=== PATIENT | male | born 1955 | race Caucasian/White ===

== ENCOUNTER 2019-07-17 18:37 | Inpatient (IN) | payer OTHER ==
[~2019-07-17] VITALS: Ht 193 cm; Wt 136.9 kg
[2019-07-17 19:13] LABS: BASOPHILS ABSOLUTE AUTO 0.09 K/mm3 (0.00-0.23); BASOPHILS PERCENT AUTO 1 % (0-2); EOSINOPHILS ABSOLUTE AUTO 0.03 K/mm3 (0.00-0.68); EOSINOPHILS PERCENT AUTO 0 % (0-6); Hematocrit 46.1 % (37.0-53.0); Hemoglobin 14.4 g/dL (13.5-17.5); IMMATURE GRAN ABSOLUTE AUTO 0.07 K/mm3 (0.00-0.10); IMMATURE GRAN PERCENT AUTO 0 % (0-1); LYMPHOCYTES ABSOLUTE AUTO 3.12 K/mm3 (0.84-5.20); LYMPHOCYTES PERCENT AUTO 19 % (21-46); MONOCYTES PERCENT AUTO 7 % (4-13); Mean Corpuscular HGB Conc 31.2 g/dL (31.5-36.5); Mean Corpuscular Volume 90 fL (80-100); Mean Platelet Volume 8.8 fL (9.1-12.4); NEUTROPHILS PERCENT AUTO 74 % (41-73); Platelet Count 366 K/mm3 (150-400); RDW Coefficient Variation 13.2 % (11.7-14.2); RDW Standard Deviation 43.4 fL (35.1-46.3); Red Blood Cell Count 5.15 M/mm3 (4.30-5.90); White Blood Cell Count 16.91 K/mm3 (4.00-11.30)
[2019-07-17 19:40] LABS: Alanine Aminotransfer (ALT/SGP 25 U/L (12-78); Albumin, Blood 2.9 g/dL (3.4-5.0); Albumin/Globulin Ratio 0.6 (0.8-1.8); Alk Phos 118 U/L (50-136); Anion Gap 8 mmol/L (6-16); Aspartate Aminotrans (AST/SGOT 43 U/L (12-37); Blood Urea Nitrogen 14 mg/dL (8-24); Bun/Creatinine Ratio 16.1 (12.0-20.0); CO2, Blood 23 mmol/L (21-32); Calcium, Blood 8.4 mg/dL (8.5-10.1); Chloride, Blood 101 mmol/L (98-108); Creatinine, Blood 0.87 mg/dL (0.60-1.20); Globulin, Blood 5.1 g/dL (2.2-4.0); Glomerular Filtration Rate >60 (60-); Glucose, Blood 126 mg/dL (70-99); Potassium, Blood 4.3 mmol/L (3.5-5.5); Sodium, Blood 132 mmol/L (136-145)
[2019-07-17 20:16] LABS: Source, Urine Clean Catch
[2019-07-17 20:19] LABS: Bilirubin, Urine Neg (Neg); Blood, Urine 4+ (Neg); Glucose Qualitative, Urine Neg (Neg); Ketones, Urine 2+ (Neg); Leukocyte Esterase, Urine Neg (Neg); Nitrite, Urine Neg (Neg); Protein, Urine 4+ (Neg); Urobilinogen, Urine NORM (Normal); pH, Urine 6.5 (5.0-8.0)
[2019-07-17 20:25] LABS: Appearance, Urine Bloody (Clear); Color, Urine Red (P-Yellow)
[2019-07-17 20:27] LABS: Red Blood Cells, Urine TNTC /hpf (0-2)
[2019-07-17 20:28] LABS: Bacteria Few /hpf; Squamous Epithelial Cells Not Seen /hpf (Few)
[2019-07-17] MEDS ORDERED: ELIQUIS2.5 MG PO (20:36)
[2019-07-17] MEDS ORDERED: METO50 PO (20:37)
[2019-07-17] MEDS ORDERED: ATOR10 PO (20:37)
[2019-07-17] MEDS ORDERED: GABA300 PO (20:37)
[2019-07-17 23:56] LABS: U Amphetamine Screen Not Detected; U Barbituate Screen Not Detected; U Benzodiazapine Screen Not Detected; U Buprenorphine Screen Not Detected; U Cannabinoids Screen DETECTED; U Cocaine Screen Not Detected; U Methadone Screen Not Detected; U Methamphetamine Screen Not Detected; U Opiates Screen Not Detected; U Oxycodone Screen Not Detected; U Phencyclidine Screen Not Detected; U Propoxyphene Screen Not Detected
--- NOTE | 2019-07-18 03:20 | NUR ---
PT TO ICU 14 FROM ED. PT ALERT AND ORIENTED, PLEASANT AND COOPERATIVE, MOVED TO ICU BED WITH SLIDER SHEET. PT'S RIGHT LEG RED/SWOLLEN/HOT FROM RIGHT HIM TO KNEE ANTERIOR/POSTERIOR. PT STATES THAT HIS HIP BEGAN HURTING "2 WEEKS AGO" AND HE SUSPECTED THAT HE WAS GETTING ARTHRITIS. PT REPORTS THAT THE PAIN/REDNESS AND SWELLING BEGAN TO GET PROGRESSIVELY WORSE AND MOVE DOWN HIS LEG. PT ALSO STATES THAT AROUND THIS TIME HE BEGAN HAVING RLQ PAIN. 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 PT COMES TO ICU IN AFIB WITH HR IN LOW 100'S. PT CHRONIC AFIB ANTICOAGULATED ON ELIQUIS. PT CURRENTLY AFEBRILE, VSS, DENIES PAIN OR NEEDS AT THIS TIME. SEE FULL ADMISSION HISTORY AND ASSESSMENT.
--- NOTE | 2019-07-18 05:48 | NUR ---
PT SHAKING UNCONTROLLABLY APPEARING DIAPHORETIC. PT REPORTS 8/10 PAIN IN ABDOMEN AND RIGHT LEG. TEMP 100.8. PT TREATED WITH PAIN MEDICATION WITH IMMEDIATE REPORTED DECREASE IN PAIN (0/10) AND TYLENOL FOR FEVER.
--- NOTE | 2019-07-18 06:39 | NUR ---
SHIFT SUMMARY NO ACUTE CHANGES SINCE ADMISSION. CURRENT TEMP 99.2. PT RESTING WELL. PLEASE SEE PREVIOUS NOTES FROM THIS SHIFT. WILL REPORT TO DAYSHIFT NURSE.
[2019-07-18 06:45] LABS: BASOPHILS ABSOLUTE AUTO 0.05 K/mm3 (0.00-0.23); BASOPHILS PERCENT AUTO 0 % (0-2); EOSINOPHILS ABSOLUTE AUTO 0.08 K/mm3 (0.00-0.68); EOSINOPHILS PERCENT AUTO 1 % (0-6); Hematocrit 39.3 % (37.0-53.0); Hemoglobin 12.4 g/dL (13.5-17.5); IMMATURE GRAN ABSOLUTE AUTO 0.05 K/mm3 (0.00-0.10); IMMATURE GRAN PERCENT AUTO 0 % (0-1); LYMPHOCYTES ABSOLUTE AUTO 2.11 K/mm3 (0.84-5.20); LYMPHOCYTES PERCENT AUTO 18 % (21-46); MONOCYTES ABSOLUTE AUTO 1.11 K/mm3 (0.16-1.47); MONOCYTES PERCENT AUTO 9 % (4-13); Mean Corpuscular HGB 27.7 pg (26.0-34.0); Mean Corpuscular HGB Conc 31.6 g/dL (31.5-36.5); Mean Corpuscular Volume 88 fL (80-100); Mean Platelet Volume 9.2 fL (9.1-12.4); NEUTROPHILS PERCENT AUTO 72 % (41-73); Platelet Count 301 K/mm3 (150-400); RDW Coefficient Variation 13.3 % (11.7-14.2); RDW Standard Deviation 42.9 fL (35.1-46.3); Red Blood Cell Count 4.48 M/mm3 (4.30-5.90)
[2019-07-18 07:00] LABS: International Normalized Ratio 1.11; Prothrombin Time Results 11.7 Sec (9.7-11.5)
[2019-07-18 07:12] LABS: Alanine Aminotransfer (ALT/SGP 19 U/L (12-78); Albumin, Blood 2.4 g/dL (3.4-5.0); Albumin/Globulin Ratio 0.6 (0.8-1.8); Alk Phos 95 U/L (50-136); Anion Gap 8 mmol/L (6-16); Aspartate Aminotrans (AST/SGOT 30 U/L (12-37); Bilirubin, Total 0.6 mg/dL (0.1-1.0); Blood Urea Nitrogen 14 mg/dL (8-24); Bun/Creatinine Ratio 18.2 (12.0-20.0); CO2, Blood 25 mmol/L (21-32); Calcium, Blood 7.7 mg/dL (8.5-10.1); Chloride, Blood 104 mmol/L (98-108); Creatinine, Blood 0.77 mg/dL (0.60-1.20); Globulin, Blood 4.3 g/dL (2.2-4.0); Glomerular Filtration Rate >60 (60-); Glucose, Blood 131 mg/dL (70-99); Sodium, Blood 137 mmol/L (136-145); Total Protein, Blood 6.7 g/dL (6.4-8.2)
--- NOTE | 2019-07-18 07:18 | NUR ---
ASSUMED CARE REPORT FROM JASON CONNELLY. PATIENT SLEEPING. IN CONTACT ISOLATION FOR MRSA. PCU STATUS. NPO FOR POSSIBLE SURGERY TODAY
--- NOTE | 2019-07-18 08:24 | NUR ---
[facility] REQUEST[facility]. CALL TO [facility] TO ADVISE PATIENT WILL NOT BE ABLE TO COME TO THIS SCHEDULED APPT THIS AM.
[2019-07-18] MEDS ORDERED: ATOR40TA PO (10:05)
--- NOTE | 2019-07-18 12:51 | NUR ---
DR. VALENTINO WAS IN. WAS UPDATED ON CT REPORT. WANTED DR. CRUZ TO SEE PT SOON BASED ON RESULTS. DR. CRUZ CAME IN, SAID PATIENT NEEDED ONCOLOGIST CONSULT PRIOR TO POSSIBLE I&D. DR. RAY'S OFFICE NOTIFED OF NEED FOR STAT CONSULT. DR. VALENTINO WILL COME BACK AT [address] FINDINGS WITH PATIENT. BOUCHRA, PALLIATIVE CARE RN WILL COME AT THAT TIME, ALSO.
--- NOTE | 2019-07-18 13:09 | NUR ---
CONFIRMED LIPITOR RX BY LOOK[facility]LE [facility]
--- NOTE | 2019-07-18 14:01 | NUR ---
PATIENT'S HAS HAD A RECENT STROKE. NOTIFIED DAUGHTER WHO IS HOME CARING FOR HER TO COME IN FOR FAMILY MEETING. SHE WILL ALSO BRING OTHER FAMILY MEMBERS
--- NOTE | 2019-07-18 14:27 | NUR ---
ADVISED PATIENT THAT CT RESULTS SHOW POSSIBLE CA. EXPLAINED SURGEON IS WAITING TO PERFORM SURGERY UNTIL AFTER ONCOLOGY GIVES OPINION. PATIENT REMAINS NPO AT LUNCH. FAMILY HAS BEEN NOTIFIED AND WILL COME IN TO BE PRESENT WHEN CT SCAN IS DISCUSSED BY MD'S
--- NOTE | 2019-07-18 16:12 | NUR ---
MD VISIT DR. RAY IN TO SEE PATIENT
--- NOTE | 2019-07-18 17:35 | NUR ---
MD VISIT DR. CRUZ IN. PATIENT MAY EAT AND HAVE HEPARIN TONIGHT. NPO FOR BREAKFAST AND HOLD AM HEPARIN.
--- NOTE | 2019-07-18 18:12 | NUR ---
REPORT GIVEN TO OH Meyer RN. PATIENT WILL GO TO 310 IN W/C WITH INSTRUMENT INSPECTOR
--- NOTE | 2019-07-18 19:32 | NUR ---
1823 PT TRANSFERRED FROM ICU VIA W/C. FAMILY AT BEDSIDE.
--- NOTE | 2019-07-18 19:46 | NUR ---
ASSUMED CARE OF PATIENT. PATIENT LAYING IN BED RR EVEN, UNLABORED, PT IS PAINFUL RLE BUT HAS NO IV ACCESS, PROCEDURE NURSE JUST ARRIVING TO PLACE IV. CALLED FOR TELE BOX, CALL CROOKS WITHIN REACH.
[2019-07-18 21:32] LABS: Vancomycin, Trough 17.7 ug/mL (5.0-10.0)
[2019-07-19 04:57] LABS: BASOPHILS ABSOLUTE AUTO 0.07 K/mm3 (0.00-0.23); BASOPHILS PERCENT AUTO 1 % (0-2); EOSINOPHILS ABSOLUTE AUTO 0.14 K/mm3 (0.00-0.68); EOSINOPHILS PERCENT AUTO 1 % (0-6); Hematocrit 37.1 % (37.0-53.0); Hemoglobin 11.5 g/dL (13.5-17.5); IMMATURE GRAN ABSOLUTE AUTO 0.05 K/mm3 (0.00-0.10); IMMATURE GRAN PERCENT AUTO 0 % (0-1); LYMPHOCYTES PERCENT AUTO 19 % (21-46); MONOCYTES ABSOLUTE AUTO 1.27 K/mm3 (0.16-1.47); MONOCYTES PERCENT AUTO 10 % (4-13); Mean Corpuscular HGB 27.6 pg (26.0-34.0); Mean Corpuscular Volume 89 fL (80-100); Mean Platelet Volume 8.9 fL (9.1-12.4); NEUTROPHILS ABSOLUTE AUTO 9.17 K/mm3 (1.96-9.15); NEUTROPHILS PERCENT AUTO 70 % (41-73); Platelet Count 275 K/mm3 (150-400); RDW Coefficient Variation 13.2 % (11.7-14.2); RDW Standard Deviation 43.3 fL (35.1-46.3); Red Blood Cell Count 4.16 M/mm3 (4.30-5.90)
[2019-07-19 05:21] LABS: Anion Gap 8 mmol/L (6-16); Blood Urea Nitrogen 9 mg/dL (8-24); Bun/Creatinine Ratio 12.3 (12.0-20.0); CO2, Blood 26 mmol/L (21-32); Calcium, Blood 7.8 mg/dL (8.5-10.1); Chloride, Blood 100 mmol/L (98-108); Creatinine, Blood 0.73 mg/dL (0.60-1.20); Glomerular Filtration Rate >60 (60-); Glucose, Blood 117 mg/dL (70-99); Sodium, Blood 134 mmol/L (136-145)
--- NOTE | 2019-07-19 10:49 | NUR ---
PT TRANSPORTED TO SURGERY VIA STRETCHER ACCOMPANIED BY RN.
--- NOTE | 2019-07-19 12:12 | NUR ---
07/19/19 1212 Lucy Johnson, DR SABILLON AND DR CRUZ AWARE
--- NOTE | 2019-07-19 13:42 | NUR ---
RECEIVED REPORT FROM BASSEM GOMEZ PT AWAKE AND ABLE TO TRANSFER BETWEEN STRETCHERS. DENIES ANY PAIN AT THIS TIME; POST OP VITALS IN PROGRESS. C/O NAUSEA. MEDICATION GIVEN. RIGHT GROIN WITH CLEAN DRY DRESSING IN PLACE.
--- NOTE | 2019-07-19 17:01 | NUR ---
FAMILY ATTENTIVE AND AT BEDSIDE; PT RESTING AND WATCHING T.V. LAUGHING AND TALKING WITH FAMILY; AFEBRILE. VSS. MEDICATED FOR POST SURGICAL PAIN.
--- NOTE | 2019-07-19 18:11 | NUR ---
SHIFT SUMMARY POST OP AFTER NECROTIC GROIN MASS REMOVED TODAY. RETURNED TO ROOM AT 1335. VSS. UP TO BATHROOM AND EATING AND DRINKING WELL. MEDICATED FOR PAIN AND NAUSEA X2. FAMILY TO VISIT. PLEASANT, UP WATCHING T.V. AND LAUGHING AND TALKING WITH FAMILY. HX OF CANCER; TELE AFIB W/RVR. STANDBY ASSIST TO BATHROOM DUE TO IV LINES AND POST OP STATUS.
--- NOTE | 2019-07-19 19:54 | NUR ---
1916: ASSUMED CARE OF PATIENT. PT SITTING IN BED IN O APPARENT DISTRESS, DENIES PAIN, FAMILY AT BEDSIDE. CHECKED DRESSING WHICH HAS IS C/D/I. SHAUN DRAIN IN PLACE DRAINING SANQUINOUS FLUID TO BULB. IV SITE WNL AND SITE IS C/D/I, INFUSING IVF AND ANTIBIOTICS. PT IS AO4 AND ABLE TO MAKE HIS NEEDS KNOWN. CALL CROOKS WITHIN REACH.
[2019-07-19 21:51] LABS: Vancomycin, Trough 23.2 ug/mL (5.0-10.0)
[2019-07-20 05:03] LABS: BASOPHILS ABSOLUTE AUTO 0.05 K/mm3 (0.00-0.23); BASOPHILS PERCENT AUTO 1 % (0-2); EOSINOPHILS ABSOLUTE AUTO 0.16 K/mm3 (0.00-0.68); EOSINOPHILS PERCENT AUTO 2 % (0-6); Hematocrit 36.7 % (37.0-53.0); Hemoglobin 11.4 g/dL (13.5-17.5); IMMATURE GRAN ABSOLUTE AUTO 0.04 K/mm3 (0.00-0.10); IMMATURE GRAN PERCENT AUTO 0 % (0-1); LYMPHOCYTES ABSOLUTE AUTO 2.05 K/mm3 (0.84-5.20); LYMPHOCYTES PERCENT AUTO 20 % (21-46); MONOCYTES ABSOLUTE AUTO 1.12 K/mm3 (0.16-1.47); MONOCYTES PERCENT AUTO 11 % (4-13); Mean Corpuscular HGB Conc 31.1 g/dL (31.5-36.5); Mean Corpuscular Volume 87 fL (80-100); Mean Platelet Volume 9.4 fL (9.1-12.4); NEUTROPHILS ABSOLUTE AUTO 6.97 K/mm3 (1.96-9.15); NEUTROPHILS PERCENT AUTO 67 % (41-73); Platelet Count 298 K/mm3 (150-400); RDW Coefficient Variation 13.2 % (11.7-14.2); RDW Standard Deviation 41.7 fL (35.1-46.3); Red Blood Cell Count 4.22 M/mm3 (4.30-5.90); White Blood Cell Count 10.39 K/mm3 (4.00-11.30)
[2019-07-20 05:26] LABS: Alanine Aminotransfer (ALT/SGP 16 U/L (12-78); Albumin, Blood 2.2 g/dL (3.4-5.0); Albumin/Globulin Ratio 0.5 (0.8-1.8); Alk Phos 101 U/L (50-136); Anion Gap 8 mmol/L (6-16); Aspartate Aminotrans (AST/SGOT 23 U/L (12-37); Bilirubin, Total 0.5 mg/dL (0.1-1.0); Blood Urea Nitrogen 11 mg/dL (8-24); Bun/Creatinine Ratio 13.6 (12.0-20.0); CO2, Blood 28 mmol/L (21-32); Chloride, Blood 105 mmol/L (98-108); Creatinine, Blood 0.81 mg/dL (0.60-1.20); Globulin, Blood 4.4 g/dL (2.2-4.0); Glomerular Filtration Rate >60 (60-); Glucose, Blood 124 mg/dL (70-99); Sodium, Blood 141 mmol/L (136-145); Total Protein, Blood 6.6 g/dL (6.4-8.2)
--- NOTE | 2019-07-20 18:25 | NUR ---
SHIFT SUMMARY OX3 PLEASANT COOPERATIVE. SBA TO BATHROOM. CONTACT FOR HX OF MRSA IN WOUN. HX OF STAGE 3 COLON CANCER WITH QUESTIONABLE FINDINGS ON CT CHEST THIS A.M. HI CLINIC. HX AND CURRENTLY AFIB WITH RVR. HEMATURIA RESOLVED. POST OP FROM 07/19 FOR REMOVAL OF GANGRENOUS MASS TO RIGHT GROIN. AFEBRILE THROUGHOUT SHIFT TODAY. EATING AND DRINKING WELL. UNAWARE OF CT FINDINGS DOCTOR HAS NOT ROUNDED AFTER CT RESULTS.
--- NOTE | 2019-07-21 04:37 | NUR ---
SHIFT SUMMARY PT HAD MOSTLY UNEVENTFUL NIGHT. PAIN TO R GROIN AND RLE. MEDICATED X 1 WITH 1 MG DILAUDID. VERY EFFECTIVE. SOME REDNESS AND SWELLING TO RLE. PT REPORTS DRASTIC IMPROVEMENT SINCE RECENT MASS REMOVAL. SHAUN DRAIN IN PLACE TO R GROIN SITE. SEROSANGUINOUS FLUID DRAINING. AFEBRILE THIS EVENING. TELEMETRY READING AFIB IN THE 90'S WITH ONE EPISODE WHERE PT BECAME BRADYCARDIC IN THE 40'S FOR A FEW SECONDS AND THEN CAME BACK UP TO THE 90'S. OTHERWISE VSS. NO OTHER ACUTE CHANGES. WILL CONTINUE TO MONITOR.
[2019-07-21 04:43] LABS: BASOPHILS ABSOLUTE AUTO 0.08 K/mm3 (0.00-0.23); BASOPHILS PERCENT AUTO 1 % (0-2); EOSINOPHILS ABSOLUTE AUTO 0.48 K/mm3 (0.00-0.68); EOSINOPHILS PERCENT AUTO 5 % (0-6); Hematocrit 35.6 % (37.0-53.0); IMMATURE GRAN ABSOLUTE AUTO 0.03 K/mm3 (0.00-0.10); IMMATURE GRAN PERCENT AUTO 0 % (0-1); LYMPHOCYTES ABSOLUTE AUTO 2.24 K/mm3 (0.84-5.20); LYMPHOCYTES PERCENT AUTO 24 % (21-46); MONOCYTES ABSOLUTE AUTO 0.88 K/mm3 (0.16-1.47); MONOCYTES PERCENT AUTO 10 % (4-13); Mean Corpuscular HGB 27.6 pg (26.0-34.0); Mean Corpuscular HGB Conc 30.9 g/dL (31.5-36.5); Mean Corpuscular Volume 89 fL (80-100); NEUTROPHILS ABSOLUTE AUTO 5.47 K/mm3 (1.96-9.15); NEUTROPHILS PERCENT AUTO 60 % (41-73); Platelet Count 312 K/mm3 (150-400); RDW Coefficient Variation 13.2 % (11.7-14.2); RDW Standard Deviation 43.7 fL (35.1-46.3); Red Blood Cell Count 3.98 M/mm3 (4.30-5.90); White Blood Cell Count 9.18 K/mm3 (4.00-11.30)
[2019-07-21 05:04] LABS: Anion Gap 6 mmol/L (6-16); Blood Urea Nitrogen 11 mg/dL (8-24); Bun/Creatinine Ratio 14.2 (12.0-20.0); CO2, Blood 30 mmol/L (21-32); Calcium, Blood 8.2 mg/dL (8.5-10.1); Chloride, Blood 104 mmol/L (98-108); Creatinine, Blood 0.78 mg/dL (0.60-1.20); Glomerular Filtration Rate >60 (60-); Glucose, Blood 105 mg/dL (70-99); Potassium, Blood 4.1 mmol/L (3.5-5.5); Sodium, Blood 140 mmol/L (136-145); Vancomycin, Trough 19.6 ug/mL (5.0-10.0)
[2019-07-21 06:09] LABS: IMMUNOGLOBULIN A, QN, SERUM 399 mg/dL (61-437); IMMUNOGLOBULIN G, QN, SERUM 1008 mg/dL (700-1600); IMMUNOGLOBULIN M, QN, SERUM 62 mg/dL (20-172)
--- NOTE | 2019-07-21 14:38 | NUR ---
Initial Visit: Pt admitted with cellulitis of extremity. History of hypertension, MRSA infection. Pt had been noticing redness and swelling in right upper thigh. This lump was surgically removed. CT scan may be suggesting either lymphoma or colon cancer. This is being further investigated and samples of tissue were sent for cytology following removal of the mass. He has also complained of blood in his urine. Pt is sitting up in bed, talking to visitor. He introduces me to sister in room. He does not appear to be in distress. Pt reports 3/10 pain. He states anything 4 and above is too uncomfortable. Reviewed pain medications. He has [place] ordered for pain at this time. He reports that in the past, narcotic medications have made him nauseated. Pt has chronic pain. He states that he was hard on his body when he was younger. He states, "I was an old man before I got old." Instructed on risk vs benefit of narcotic medications. He is still having loose stools and is not worried about constipation at this time. He is requesting pain meds at this time, since it may take up to an hour to be effective. Pt denies shortness of breath, anxiety. Per notes, Dr. Baer has asked that palliative hold off on speaking with the pt about advance care planning until after cytology is back and diagnosis can be confirmed. Will plan on following up with the pt afterwards, but seeing him now for symptom managment.
--- NOTE | 2019-07-21 17:25 | NUR ---
HE IS RESTING IN BED RECEIVING AN INFUSION OF CYCLOPHOSPHAMIDE. LFA SITE WNL. TINY BLOOD RETURN NOTED BEFORE INFUSION STARTED. HE HAS BEEN INSTRUCTED ON CHEMO PRECAUTIONS REGARDING DOUBLE FLUSHES WITH THE CHUX COVERING THE TOILET. SOMETIMES HE IS UP AD DALLAS IN THE ROOM. HE UNDERSTANDS THAT DISCUSSED LYMPHOMA WITH HIM AND THE PLAN FOR HIGH DOSE STEROIDS AND CHEMOTHERAPY. HIS R THIGH DRESSING IS D&I. HIS SHAUN DRAIN HAS BEEN EMPTIED X2 THIS SHIFT SO FAR FOR A TOTAL OF 50 MLS SEROSANGUINOUS DRANAGE. HE HAS BEEN MEDICATED WITH NORCO X1 SO FAR FOR THE PAIN IN HIS L MEDIAL THIGH. TELE SHOWS AFIB. WILL CONTINUE TO MONITOR THE CHEMOTHERAPY.
[2019-07-22 04:48] LABS: BASOPHILS ABSOLUTE AUTO 0.02 K/mm3 (0.00-0.23); BASOPHILS PERCENT AUTO 0 % (0-2); EOSINOPHILS ABSOLUTE AUTO 0.01 K/mm3 (0.00-0.68); EOSINOPHILS PERCENT AUTO 0 % (0-6); Hematocrit 39.1 % (37.0-53.0); Hemoglobin 12.2 g/dL (13.5-17.5); IMMATURE GRAN ABSOLUTE AUTO 0.03 K/mm3 (0.00-0.10); IMMATURE GRAN PERCENT AUTO 0 % (0-1); LYMPHOCYTES ABSOLUTE AUTO 1.09 K/mm3 (0.84-5.20); LYMPHOCYTES PERCENT AUTO 13 % (21-46); MONOCYTES ABSOLUTE AUTO 0.17 K/mm3 (0.16-1.47); MONOCYTES PERCENT AUTO 2 % (4-13); Mean Corpuscular HGB 27.2 pg (26.0-34.0); Mean Corpuscular HGB Conc 31.2 g/dL (31.5-36.5); Mean Corpuscular Volume 87 fL (80-100); NEUTROPHILS ABSOLUTE AUTO 7.01 K/mm3 (1.96-9.15); NEUTROPHILS PERCENT AUTO 84 % (41-73); Platelet Count 382 K/mm3 (150-400); RDW Coefficient Variation 12.8 % (11.7-14.2); RDW Standard Deviation 41.1 fL (35.1-46.3); Red Blood Cell Count 4.48 M/mm3 (4.30-5.90); White Blood Cell Count 8.33 K/mm3 (4.00-11.30)
[2019-07-22 05:06] LABS: Anion Gap 5 mmol/L (6-16); Blood Urea Nitrogen 11 mg/dL (8-24); CO2, Blood 29 mmol/L (21-32); Calcium, Blood 8.7 mg/dL (8.5-10.1); Chloride, Blood 105 mmol/L (98-108); Creatinine, Blood 0.61 mg/dL (0.60-1.20); Glomerular Filtration Rate >60 (60-); Glucose, Blood 173 mg/dL (70-99); Potassium, Blood 4.7 mmol/L (3.5-5.5); Sodium, Blood 139 mmol/L (136-145)
--- NOTE | 2019-07-22 05:15 | NUR ---
SHIFT SUMMARY PT HAD UNEVENTFUL EVENING. CHEMO DOSE COMPLETED BY DAY RN JUST BEFORE SHIFT CHANGE. 500 CC BOLUS GIVEN FOLLOWING. PT TOLERATED WELL. CONTINUES TO HAVE SOME PAIN IN RLE/R GROIN BUT IMPROVING. MEDICATED X 1 W/ 1 TAB NORCO 5/325 BEFORE BEDTIME. PT DID WELL THE REMAINDER OF THE EVENING NOT NEEDING ANY FURTHER PRN MEDICATIONS. PT SLEPT WELL. DIAPHORETIC THIS AM, AFEBRILE. OFFERED TO CHANGE PT'S BEDDING BUT PT DECLINED AT THIS TIME. BEDDING PLACED IN ROOM. VITAL SIGNS STABLE. NO ACUTE CHANGES. WILL CONTINUE TO MONITOR.
[2019-07-22] MEDS ORDERED: HYDR1TAB94 PO (11:19)
[2019-07-22] MEDS ORDERED: ACET325 PO (11:21)
[2019-07-22] MEDS ORDERED: ONDA4ODT PO (11:26)
[2019-07-22] MEDS ORDERED: AMOCLA875 PO (11:26)
[2019-07-22] MEDS ORDERED: CHLORASEPTIC177 ML TOP (11:28)
[2019-07-22] MEDS ORDERED: Florastor250 MG PO (11:29)
[2019-07-22] MEDS ORDERED: Prednisone50 MG PO (11:29)
[2019-07-22 13:07] LABS: BETA-2 MICROGLOBULIN, SERUM 1.9 mg/L (0.6-2.4)
[2019-07-22 15:07] LABS: A/G RATIO 0.6 (0.7-1.7); ALBUMIN 2.2 g/dL (2.9-4.4); ALPHA-1-GLOBULIN 0.3 g/dL (0.0-0.4); BETA GLOBULIN 1.1 g/dL (0.7-1.3); GAMMA GLOBULIN 1.1 g/dL (0.4-1.8); GLOBULIN, TOTAL 3.5 g/dL (2.2-3.9); M-SPIKE Not Observed g/dL (Not Observed); PROTEIN, TOTAL, SERUM 5.7 g/dL (6.0-8.5)
--- NOTE | 2019-07-22 15:19 | NUR ---
DISCHARGED TO HOME AT 1405 WITH BELONGINGS, 1 RX AND INSTRUCTIONS. [facility]. HE RECEIVED 1 PAIN PILL TODAY FOR HIS R LEG. PAIN LEVEL ONLY A 3. SHAUN DRAIN WITH GOOD SELF-SUCTION. OUTPUT RECORDED. HE UNDERSTANDS WOUND CARE IF NEEDED AND HIS 2 APPTS. MON/TUES NEXT WEEK.
--- NOTE | 2019-07-22 15:22 | NUR ---
I TAUGHT HIM HOW TO EMPTY HIS SHAUN DRAIN AND RECORD THE OUTPUT.
[2019-07-22 15:47] LABS: Performing Lab SYMBIODX; Test Name TISSUE BLOCK
== END 2019-07-22 14:02 | disposition home or self-care (01) | DRG 854 ==
LOC: ER 18:37 → ICUW 07-18 00:05 → MEDS 07-18 00:05 → ICUW 07-18 01:30 → MEDS 07-18 18:23
PROVIDERS: Emergency Medicine; Family Medicine; Internal Medicine Hematology & Oncology; Nurse Practitioner Acute Care; Surgery; ADMIT Hospitalist
PROC: 07BH3ZX Excision of Right Inguinal Lymphatic, Percutaneous Approach, Diagnostic (ICD-10-PCS; principal; 2019-07-19 11:00)
DX: A41.02 Sepsis due to Methicillin resistant Staphylococcus aureus (principal); C85.96 Non-Hodgkin lymphoma, unspecified, intrapelvic lymph nodes; C18.0 Malignant neoplasm of cecum; C18.9 Malignant neoplasm of colon, unspecified; L03.115 Cellulitis of right lower limb; R65.20 Severe sepsis without septic shock; I48.2 Chronic atrial fibrillation; Z79.01 Long term (current) use of anticoagulants; G62.9 Polyneuropathy, unspecified; F17.210 Nicotine dependence, cigarettes, uncomplicated; F12.20 Cannabis dependence, uncomplicated; I10 Essential (primary) hypertension; G25.81 Restless legs syndrome
CPT/HCPCS: 36415; 71045; 71046; 71260; 74177; 80048; 80053; 80202; 81001; 82232; 82378; 82550; 82784; 83605; 83690; 84145; 84165; 84484; 84550; 85025; 85610; 85651; 86140; 87040; 87086; 88271; 88275; 88305; 88341; 88342; 93005; 93010; 96361; 96365-59; 96366; 96367; 96375; 99285-25; A9270; A9270-GY; J0696; J1170; J1644; J1885; J2250; J2405; J2543; J2704; J3010; J3370; J7030; J7040; J7050; J7060; J7120; J7512; J9070; Q9967

== ENCOUNTER 2019-09-12 09:48 | Day surgery (SDC) | payer OTHER ==
[~2019-09-12 09:48] MED LIST: ACET325 PO; AMOCLA875 PO; ATOR10 PO; ATOR40TA PO; CHLORASEPTIC177 ML TOP; ELIQUIS2.5 MG PO; Florastor250 MG PO; GABA300 PO; HYDR1TAB94 PO; METO50 PO; ONDA4ODT PO; Prednisone50 MG PO
[2019-09-12] MEDS ORDERED: Florastor250 MG PO (11:15)
== END 2019-09-12 10:20 | disposition home or self-care (01) ==
LOC: ATC 09:48
DX: C83.38 Diffuse large B-cell lymphoma, lymph nodes of multiple sites (principal); E11.9 Type 2 diabetes mellitus without complications; E78.2 Mixed hyperlipidemia; I10 Essential (primary) hypertension; F17.210 Nicotine dependence, cigarettes, uncomplicated; H90.5 Unspecified sensorineural hearing loss; Z79.01 Long term (current) use of anticoagulants; Z79.899 Other long term (current) drug therapy
CPT/HCPCS: 99212

== ENCOUNTER → 2019-10-06 | Outpatient (CLI) | payer OTHER ==
[2019-10-06 10:32] LABS: Hemoglobin 13.2 g/dL (13.5-17.5); Mean Corpuscular HGB 26.8 pg (26.0-34.0); Mean Corpuscular HGB Conc 32.2 g/dL (31.5-36.5); Mean Corpuscular Volume 83 fL (80-100); Mean Platelet Volume 9.8 fL (9.1-12.4); Platelet Count 125 K/mm3 (150-400); RDW Coefficient Variation 14.6 % (11.7-14.2); RDW Standard Deviation 43.7 fL (35.1-46.3); Red Blood Cell Count 4.92 M/mm3 (4.30-5.90)
[2019-10-06 10:37] LABS: BASOPHILS ABSOLUTE AUTO 0.04 K/mm3 (0.00-0.23); BASOPHILS PERCENT AUTO 7 % (0-2); EOSINOPHILS ABSOLUTE AUTO 0.01 K/mm3 (0.00-0.68); EOSINOPHILS PERCENT AUTO 2 % (0-6); IMMATURE GRAN PERCENT AUTO 0 % (0-1); LYMPHOCYTES ABSOLUTE AUTO 0.41 K/mm3 (0.84-5.20); LYMPHOCYTES PERCENT AUTO 76 % (21-46); MONOCYTES ABSOLUTE AUTO 0.04 K/mm3 (0.16-1.47); MONOCYTES PERCENT AUTO 7 % (4-13); NEUTROPHILS ABSOLUTE AUTO 0.04 K/mm3 (1.96-9.15); NEUTROPHILS PERCENT AUTO 7 % (41-73)
[2019-10-06 10:41] LABS: White Blood Cell Count 0.54 K/mm3 (4.00-11.30)
[2019-10-06 10:48] LABS: Alanine Aminotransfer (ALT/SGP 26 U/L (12-78); Albumin/Globulin Ratio 0.7 (0.8-1.8); Alk Phos 88 U/L (50-136); Anion Gap 10 mmol/L (6-16); Aspartate Aminotrans (AST/SGOT 19 U/L (12-37); Bilirubin, Total 0.8 mg/dL (0.1-1.0); Blood Urea Nitrogen 11 mg/dL (8-24); Bun/Creatinine Ratio 14.3 (12.0-20.0); CO2, Blood 26 mmol/L (21-32); Calcium, Blood 8.5 mg/dL (8.5-10.1); Chloride, Blood 99 mmol/L (98-108); Creatinine, Blood 0.77 mg/dL (0.60-1.20); Globulin, Blood 4.2 g/dL (2.2-4.0); Glomerular Filtration Rate >60 (60-); Glucose, Blood 174 mg/dL (70-99); Potassium, Blood 4.2 mmol/L (3.5-5.5); Sodium, Blood 135 mmol/L (136-145); Total Protein, Blood 7.2 g/dL (6.4-8.2)
[2019-10-06 13:11] LABS: Bilirubin, Urine Neg (Neg); Blood, Urine 1+ (Neg); Glucose Qualitative, Urine Neg (Neg); Ketones, Urine Neg (Neg); Leukocyte Esterase, Urine Neg (Neg); Nitrite, Urine Neg (Neg); Protein, Urine Neg (Neg); Urobilinogen, Urine NORM (Normal)
[2019-10-06 13:19] LABS: Appearance, Urine Clear (Clear); Color, Urine Yellow (P-Yellow)
[2019-10-06 13:30] LABS: Bacteria Few /hpf; Red Blood Cells, Urine 0-2 /hpf (0-2); Squamous Epithelial Cells Few /hpf (Few); White Blood Cells, Urine Not Seen /hpf (0-5)
== END | disposition home or self-care (01) ==
LOC: LAB SHORT 09:54 → LAB 09:54
PROVIDERS: Registered Nurse Oncology
DX: C83.30 Diffuse large B-cell lymphoma, unspecified site (principal)
CPT/HCPCS: 80053; 81001; 85025

== ENCOUNTER 2019-10-20 10:26 | Day surgery (SDC) | payer OTHER | END 2019-10-20 10:54 | disposition home or self-care (01) | LOC: ATC 10:26 | DX: C83.38 Diffuse large B-cell lymphoma, lymph nodes of multiple sites (principal); F17.210 Nicotine dependence, cigarettes, uncomplicated; E78.2 Mixed hyperlipidemia; E11.9 Type 2 diabetes mellitus without complications; I10 Essential (primary) hypertension; H90.5 Unspecified sensorineural hearing loss; Z79.01 Long term (current) use of anticoagulants; Z79.899 Other long term (current) drug therapy | CPT/HCPCS: 99211 ==

== ENCOUNTER 2019-10-26 00:10 | Day surgery (SDC) | payer OTHER | END 2019-10-26 10:04 | disposition home or self-care (01) | LOC: ATC 00:10 | DX: Z48.00 Encounter for change or removal of nonsurgical wound dressing (principal); C83.30 Diffuse large B-cell lymphoma, unspecified site; E11.9 Type 2 diabetes mellitus without complications; I10 Essential (primary) hypertension; F17.210 Nicotine dependence, cigarettes, uncomplicated; I48.91 Unspecified atrial fibrillation; E78.2 Mixed hyperlipidemia; Z79.01 Long term (current) use of anticoagulants; Z79.899 Other long term (current) drug therapy ==

== ENCOUNTER 2019-11-09 10:47 | Day surgery (SDC) | payer OTHER | END 2019-11-09 11:17 | disposition home or self-care (01) | LOC: ATC 10:47 | DX: Z48.00 Encounter for change or removal of nonsurgical wound dressing (principal); C83.38 Diffuse large B-cell lymphoma, lymph nodes of multiple sites; F17.210 Nicotine dependence, cigarettes, uncomplicated; I48.91 Unspecified atrial fibrillation; E11.9 Type 2 diabetes mellitus without complications; E78.2 Mixed hyperlipidemia; Z79.01 Long term (current) use of anticoagulants; Z79.52 Long term (current) use of systemic steroids; Z79.899 Other long term (current) drug therapy | CPT/HCPCS: 99211 ==

== ENCOUNTER 2019-11-16 00:22 | Day surgery (SDC) | payer OTHER | END 2019-11-16 10:18 | disposition home or self-care (01) | LOC: ATC 00:22 | DX: Z48.00 Encounter for change or removal of nonsurgical wound dressing (principal); C83.38 Diffuse large B-cell lymphoma, lymph nodes of multiple sites; I10 Essential (primary) hypertension; E11.9 Type 2 diabetes mellitus without complications; F17.210 Nicotine dependence, cigarettes, uncomplicated; I48.91 Unspecified atrial fibrillation; E78.2 Mixed hyperlipidemia; Z79.01 Long term (current) use of anticoagulants; Z79.899 Other long term (current) drug therapy | CPT/HCPCS: 99211 ==

== ENCOUNTER 2019-11-22 00:06 | Day surgery (SDC) | payer OTHER | END 2019-11-22 10:22 | disposition home or self-care (01) | LOC: ATC 00:06 | DX: Z45.2 Encounter for adjustment and management of vascular access device (principal); C83.38 Diffuse large B-cell lymphoma, lymph nodes of multiple sites; I10 Essential (primary) hypertension; E78.2 Mixed hyperlipidemia; F17.210 Nicotine dependence, cigarettes, uncomplicated; E11.9 Type 2 diabetes mellitus without complications; H90.5 Unspecified sensorineural hearing loss; Z79.01 Long term (current) use of anticoagulants; Z79.899 Other long term (current) drug therapy | CPT/HCPCS: 36415; 80053; 85025; 99211 ==

== ENCOUNTER 2020-01-02 01:27 | Inpatient (IN) | payer OTHER ==
[~2020-01-02] VITALS: Ht 193 cm; Wt 123.5 kg
[~2020-01-02 01:27] MED LIST changes: +Cleocin HCl300 MG PO; +LEVFLO500 PO; -ONDA4ODT PO; +ONDA4ODT SL
[2020-01-02 02:39] LABS: Hematocrit 30.8 % (37.0-53.0); Hemoglobin 9.8 g/dL (13.5-17.5); Mean Corpuscular HGB 29.4 pg (26.0-34.0); Mean Corpuscular HGB Conc 31.8 g/dL (31.5-36.5); Mean Corpuscular Volume 93 fL (80-100); Mean Platelet Volume 9.9 fL (9.1-12.4); Platelet Count 236 K/mm3 (150-400); RDW Coefficient Variation 15.3 % (11.7-14.2); RDW Standard Deviation 52.2 fL (35.1-46.3); Red Blood Cell Count 3.33 M/mm3 (4.30-5.90); White Blood Cell Count 2.94 K/mm3 (4.00-11.30)
[2020-01-02 02:59] LABS: BAND PERCENT MAN 2 % (0-8); BASOPHILS ABSOLUTE MAN 0.14 K/mm3 (0.00-0.23); BASOPHILS PERCENT MAN 5 % (0-2); EOSINOPHILS ABSOLUTE MAN 0.17 K/mm3 (0.00-0.68); EOSINOPHILS PERCENT MAN 6 % (0-6); LYMPHOCYTES ABSOLUTE MAN 0.67 K/mm3 (0.84-5.20); LYMPHOCYTES PERCENT MAN 23 % (21-46); METAMYELOCYTE ABSOLUTE MAN 0.08 K/mm3 (0.00-0.00); METAMYELOCYTE PERCENT MAN 3 % (0-0); MONOCYTES ABSOLUTE MAN 0.52 K/mm3 (0.16-1.47); MONOCYTES PERCENT MAN 18 % (4-13); MYELOCYTE ABSOLUTE MAN 0.05 K/mm3 (0.00-0.00); MYELOCYTE PERCENT MAN 2 % (0-0); NEUTROPHILS ABSOLUTE MAN 1.26 K/mm3 (1.96-9.15); SEG NEUTROPHILS PERCENT MAN 41 % (41-73); TOTAL CELLS COUNTED 100
[2020-01-02 03:01] LABS: Albumin, Blood 2.3 g/dL (3.4-5.0); Anion Gap 7 mmol/L (6-16); Blood Urea Nitrogen 6 mg/dL (8-24); Bun/Creatinine Ratio 8.6 (12.0-20.0); CO2, Blood 26 mmol/L (21-32); Calcium, Blood 8.2 mg/dL (8.5-10.1); Chloride, Blood 103 mmol/L (98-108); Glomerular Filtration Rate >60 (60-); Glucose, Blood 157 mg/dL (70-99); Phosphorus, Blood 2.7 mg/dL (2.5-4.9); Potassium, Blood 3.7 mmol/L (3.5-5.5); Sodium, Blood 136 mmol/L (136-145)
--- NOTE | 2020-01-02 03:35 | NUR ---
PT ARRIVED TO PCU FROM ER MED WITH TELE. PT SCOOTS SELF TO BED. A/O X4. HAS WOUND TO BOTTOM OF R FOOT. PT STATES HE HAS SHARP/BURNING/THROBBING PAIN. WILL CALL DR. BARAJAS FOR PAIN MEDS. PT GIVEN CALL LIGHT AND DEMONSTRATES APPROPRIATE USE.
[2020-01-02] MEDS ORDERED: Norco 10-325 T1 EACH PO (03:59)
--- NOTE | 2020-01-02 07:26 | NUR ---
ASSUMED CARE: PT RESTING QUIETLY. NO ACUTE NEEDS OR CONCERNS AT THIS TIME.
--- NOTE | 2020-01-02 11:00 | NUR ---
DR VALERO INSTRUCTED TO HOLD HEPARIN UNTIL NOON TO GET DR GR'S INPUT ON BLOOD THINNERS AND SURGERY PLAN. PORCELAIN FINISHER AND PHARMACY AWARE
--- NOTE | 2020-01-02 13:58 | NUR ---
CERTIFIED ALCOHOL AND DRUG COUNSELOR ADVISED THIS RN TO HOLD SILVADENE CREAM UNTIL AFTER MRI IN CASE CREAM OBSCURES VIEW TO MRI. CALLED MRI TO CONFIRM BUT NO ANSWER, LEFT MESSAGE
--- NOTE | 2020-01-02 17:49 | NUR ---
ASSUMED CARE: PT SITTING UPRIGHT IN BED. HAS BEEN TO MRI ALREADY. PLAN FOR NPO AT MIDNIGHT FOR SURGERY IN AM WITH DR GR. DENIES PAIN OR FURTHER CONCERNS.
[2020-01-03 04:13] LABS: BASOPHILS ABSOLUTE AUTO 0.06 K/mm3 (0.00-0.23); BASOPHILS PERCENT AUTO 2 % (0-2); EOSINOPHILS ABSOLUTE AUTO 0.32 K/mm3 (0.00-0.68); EOSINOPHILS PERCENT AUTO 9 % (0-6); Hematocrit 31.9 % (37.0-53.0); Mean Corpuscular HGB Conc 31.3 g/dL (31.5-36.5); Mean Corpuscular Volume 93 fL (80-100); Mean Platelet Volume 9.7 fL (9.1-12.4); Platelet Count 280 K/mm3 (150-400); RDW Coefficient Variation 15.2 % (11.7-14.2); RDW Standard Deviation 50.8 fL (35.1-46.3); Red Blood Cell Count 3.45 M/mm3 (4.30-5.90); White Blood Cell Count 3.64 K/mm3 (4.00-11.30)
[2020-01-03 04:14] LABS: IMMATURE GRAN ABSOLUTE AUTO 0.12 K/mm3 (0.00-0.10); IMMATURE GRAN PERCENT AUTO 3 % (0-1); LYMPHOCYTES ABSOLUTE AUTO 1.22 K/mm3 (0.84-5.20); LYMPHOCYTES PERCENT AUTO 34 % (21-46); MONOCYTES ABSOLUTE AUTO 0.87 K/mm3 (0.16-1.47); MONOCYTES PERCENT AUTO 24 % (4-13); NEUTROPHILS ABSOLUTE AUTO 1.05 K/mm3 (1.96-9.15); NEUTROPHILS PERCENT AUTO 29 % (41-73)
[2020-01-03 04:31] LABS: Anion Gap 5 mmol/L (6-16); Blood Urea Nitrogen 8 mg/dL (8-24); Bun/Creatinine Ratio 11.9 (12.0-20.0); CO2, Blood 30 mmol/L (21-32); Calcium, Blood 8.7 mg/dL (8.5-10.1); Chloride, Blood 105 mmol/L (98-108); Creatinine, Blood 0.68 mg/dL (0.60-1.20); Glomerular Filtration Rate >60 (60-); Glucose, Blood 107 mg/dL (70-99); Sodium, Blood 140 mmol/L (136-145)
--- NOTE | 2020-01-03 05:14 | NUR ---
SHIFT SUMMARY PT SLEEPING IN ROOM COMFORTABLY AT THIS TIME. NO ACUTE CHANGES IN STATUS T/O NIGHT. PT SLEPT WELL. RESP EVEN UNLABORED ON RA W/ SATS >92%. PT DENIED ANY NEEDS T/O NIGHT. USED URINAL AT BEDSIDE. PT WAS MADE NPO AT 0000 FOR SURGICAL PROCEDURE ON FOOT TODAY. PT AWARE OF PROCEDURE. DENIED ANY CP OR SOB. CALL LIGHT IN REACH. PT HAS REFUSED BEDSIDE REPORT THIS AM.
--- NOTE | 2020-01-03 07:19 | NUR ---
Ambulatory in Day Surgery. Surgical site prepped with 2% Chlorhexidine cloth wipe. Lungs clear T/O to Auscultation. History, Chart, Medications and Allergies reviewed before start of procedure.Patient confirms NPO status and agrees with scheduled surgery. Pre-Op teaching done. Pt verbalizes understanding. THE PATIENT WAS BROUGHT DOWN FROM HIS ROOM AND MADE KJ FOR SURGERY.
--- NOTE | 2020-01-03 09:18 | NUR ---
AM NOTE... ASSUMED CARE OF PT APROX 0700. PT IS A&Ox4. PT JUST RETURNED FROM A PARTIAL AMPUTATION OF HIS RIGHT FOOT. PT'S VS STABLE, PT IS AWAKE AND ALERT AND ON RA. NO EDEMA IS NOTED ON ASSESSMENT. PT'S RIGHT FOOT DRESSING IS C/D/I, PER PROVIDER'S ORDER PT IS TO BE NWB ON THE RIGHT FOOT/LEG. PT'S R LEG IS WARM AND DRY. CALL LIGHT IN REACH WILL CONTINUE TO MONITOR.
--- NOTE | 2020-01-03 18:08 | NUR ---
SHIFT SUMMARY... NO ACUTE NEGATIVE CHANGES NOTED THIS SHIFT. PT'S VS HAVE BEEN STABLE NO EVENTS NOTED ON TELE. PT HAS BEEN MEDICATED FOR PAIN PER EMAR. PT HAS HAD SEVERAL FAMILY/VISITORS T/O THE SHIFT. PT HAS BEEN UP TO THE BSC W/SBA. CALL LIGHT IN REACH, WILL CONTINUE TO MONITOR UNTIL REPORT IS GIVEN TO ONCOMING RN.
--- NOTE | 2020-01-03 22:50 | NUR ---
PT. TO BE TRANSFERRED TO MEDICAL FLOOR. REPORT GIVEN TO DAVID BEEBE RN.
--- NOTE | 2020-01-04 05:37 | NUR ---
FISH HATCHERY SUPERINTENDENT SUMMARY PT TRANSFERED FROM [facility] AT 2330 TONIGHT. PT AAOX4 AND PLEASANT. TREATED FOR R FOOT PAIN X2 WITH NORCO TONIGHT. DRESSING AROUND FOOT WOUND C/D/I. PT REPORTS GOOD PAIN RELIEF WITH NORCO AND WAS ABLE TO GET SOME SLEEP TONIGHT. VSS, WILL CONTINUE TO MONITOR.
--- NOTE | 2020-01-04 13:56 | NUR ---
Patient open to student nursing interview in privae setting. Patient verbally agreed to allow this writter to particpate in care. Patient is A&Ox3 pleasant well groomed affect bright with good eye contact.
--- NOTE | 2020-01-04 18:17 | NUR ---
SHIFT SUMMARY PATIENT HAS HAD NO ACUTE CHANGES TODAY. DR. GR IN TO VISIT. DRESSING CHANGE TOMORROW WITH DR. GR. PATIENT ABLE TO MAKE HIS NEEDS KNOWN. NO COMPLAINTS OF PAIN THIS SHIFT. IN GOOD SPIRITS OVERALL.
--- NOTE | 2020-01-05 00:49 | NUR ---
BEGINNING SHIFT SUMMARY ASSUMED CARE OF PT AT 1900. PT IS A/O X4. PT C/O PAIN IN HIS R FOOT, MEDICATED PER EMAR. HEART SOUNDS REGULAR, LUNG SOUNDS CLEAR, DENIES CP/SOB AT THIS TIME. PT LEGS ARE DISCOLORED, PERIPHERAL PULSES WEAK. DENIES PROBLEMS USING THE RESTROOM. CALL LIGHT IN REACH, BED IN LOWEST POSTION, WILL CONTINUE TO MONITOR.
--- NOTE | 2020-01-05 05:17 | NUR ---
END SHIFT SUMMARY NO ACUTE CHANGES NOTED T/O THE NIGHT. PT SLEPT T/O THE NIGHT EXCEPT TO USE HIS URINAL. PT DENIES FEVER/ CHILLS AT THIS TIME. CALL LIGHT IN REACH, BED IN LOWEST POSTION, WILL CONTINUE TO MONITOR UNTIL DAYSHIFT NURSE ARRIVES.
[2020-01-05] MEDS ORDERED: ONDA4ODT MM (15:58)
[2020-01-05] MEDS ORDERED: Vsl#3 Capsule1 EACH PO (15:58)
[2020-01-05] MEDS ORDERED: Rocephin 1g1 G/50 ML IV (15:58)
--- NOTE | 2020-01-05 17:50 | NUR ---
PT DISCHARGED FROM THE UNIT, LEFT VIA WHEEL CHAIR. DISCHARGE INSTRUCTIONS REVIEWED. APT AT [facility] FOR TOMORROW, WHERE PICC LINE WILL BE PLACED AND IV ANTIBIOTICS STARTED. HARD SCRIPT SENT HOME FOR PAIN MEDICATION. MEDICATIONS FAXED TO [facility] IN [place]. IV'S REMOVED. BELONGINGS RETURNED. NO QUESTIONS AT THIS TIME. HOME HEALTH WILL CALL TO SCHEDULE APT
== END 2020-01-05 17:33 | disposition home or self-care (01) | DRG 854 ==
LOC: ER 01:27 → PCU 03:26 → MEDS 01-03 23:10
PROVIDERS: Emergency Medicine; Internal Medicine; Podiatrist Foot & Ankle Surgery; ADMIT Family Medicine
PROC: 0Y6X0Z1 Detachment at Right 5th Toe, High, Open Approach (ICD-10-PCS; 2020-01-03)
PROC: 0Y6V0Z1 Detachment at Right 4th Toe, High, Open Approach (ICD-10-PCS; 2020-01-03)
PROC: 0Y6T0Z1 Detachment at Right 3rd Toe, High, Open Approach (ICD-10-PCS; 2020-01-03)
PROC: 0Y6R0Z1 Detachment at Right 2nd Toe, High, Open Approach (ICD-10-PCS; 2020-01-03)
PROC: 0Y6P0Z1 Detachment at Right 1st Toe, High, Open Approach (ICD-10-PCS; principal; 2020-01-03 07:30)
DX: A40.1 Sepsis due to streptococcus, group B (principal); M86.171 Other acute osteomyelitis, right ankle and foot; M86.671 Other chronic osteomyelitis, right ankle and foot; L03.115 Cellulitis of right lower limb; I48.20 Chronic atrial fibrillation, unspecified; C85.90 Non-Hodgkin lymphoma, unspecified, unspecified site; R65.20 Severe sepsis without septic shock; I10 Essential (primary) hypertension; G62.9 Polyneuropathy, unspecified; E78.5 Hyperlipidemia, unspecified; G25.81 Restless legs syndrome; D64.9 Anemia, unspecified; Z92.21 Personal history of antineoplastic chemotherapy; Z86.14 Personal history of Methicillin resistant Staphylococcus aureus infection; Z87.891 Personal history of nicotine dependence
CPT/HCPCS: 36415; 73630; 73720; 80048; 80069; 82947; 83605; 85025; 85651; 85730; 86140; 88307; 88311; 93306; 96365; 97110; 97116; 97162; 97166; 97535; 99284-25; A9270; A9270-GY; A9577; J0690; J0696; J1100; J1650; J2001; J2370; J2405; J2543; J2704; J3010; J7050; J7120

== ENCOUNTER 2020-01-06 08:43 | Day surgery (SDC) | payer OTHER ==
[~2020-01-06 08:43] MED LIST changes: +Norco 10-325 T1 EACH PO; +ONDA4ODT MM; +Rocephin 1g1 G/50 ML IV; +Vsl#3 Capsule1 EACH PO
== END 2020-01-06 15:25 | disposition home or self-care (01) ==
LOC: ATC 08:43
DX: M86.9 Osteomyelitis, unspecified (principal); C85.90 Non-Hodgkin lymphoma, unspecified, unspecified site; L97.819 Non-pressure chronic ulcer of other part of right lower leg with unspecified severity; L97.529 Non-pressure chronic ulcer of other part of left foot with unspecified severity; E78.5 Hyperlipidemia, unspecified; I10 Essential (primary) hypertension; I48.91 Unspecified atrial fibrillation; D64.9 Anemia, unspecified; L03.115 Cellulitis of right lower limb; B96.89 Other specified bacterial agents as the cause of diseases classified elsewhere; Z79.01 Long term (current) use of anticoagulants; Z79.899 Other long term (current) drug therapy; Z87.891 Personal history of nicotine dependence
CPT/HCPCS: 71045; J0696

== ENCOUNTER 2020-01-07 01:27 | Day surgery (SDC) | payer OTHER | END 2020-01-07 10:47 | disposition home or self-care (01) | LOC: ATC 01:27 | DX: M86.9 Osteomyelitis, unspecified (principal); L03.115 Cellulitis of right lower limb; C85.90 Non-Hodgkin lymphoma, unspecified, unspecified site; L97.519 Non-pressure chronic ulcer of other part of right foot with unspecified severity; I10 Essential (primary) hypertension; G62.9 Polyneuropathy, unspecified; D63.0 Anemia in neoplastic disease; E78.5 Hyperlipidemia, unspecified; Z79.01 Long term (current) use of anticoagulants; Z87.891 Personal history of nicotine dependence; Z79.899 Other long term (current) drug therapy | CPT/HCPCS: 96365; J0696 ==

== ENCOUNTER 2020-01-08 09:59 | Day surgery (SDC) | payer OTHER | END 2020-01-08 10:36 | disposition home or self-care (01) | LOC: ATC 09:59 | DX: M86.9 Osteomyelitis, unspecified (principal); L03.115 Cellulitis of right lower limb; C85.90 Non-Hodgkin lymphoma, unspecified, unspecified site; L97.519 Non-pressure chronic ulcer of other part of right foot with unspecified severity; E78.5 Hyperlipidemia, unspecified; I10 Essential (primary) hypertension; Z79.01 Long term (current) use of anticoagulants; Z79.899 Other long term (current) drug therapy; Z87.891 Personal history of nicotine dependence; G62.9 Polyneuropathy, unspecified; D63.0 Anemia in neoplastic disease | CPT/HCPCS: 96365; J0696 ==

== ENCOUNTER 2020-01-12 00:18 | Day surgery (SDC) | payer OTHER | END 2020-01-12 09:34 | disposition home or self-care (01) | LOC: ATC 00:18 | DX: L03.115 Cellulitis of right lower limb (principal); L97.519 Non-pressure chronic ulcer of other part of right foot with unspecified severity; A41.89 Other specified sepsis; R65.20 Severe sepsis without septic shock; E78.5 Hyperlipidemia, unspecified; C85.91 Non-Hodgkin lymphoma, unspecified, lymph nodes of head, face, and neck; D63.0 Anemia in neoplastic disease; I10 Essential (primary) hypertension; L97.529 Non-pressure chronic ulcer of other part of left foot with unspecified severity; G62.9 Polyneuropathy, unspecified; Z87.891 Personal history of nicotine dependence; Z79.899 Other long term (current) drug therapy; Z79.01 Long term (current) use of anticoagulants | CPT/HCPCS: 96365; J0696 ==

== ENCOUNTER 2020-01-13 02:02 | Day surgery (SDC) | payer OTHER | END 2020-01-13 11:29 | disposition home or self-care (01) | LOC: ATC 02:02 | DX: L03.115 Cellulitis of right lower limb (principal); L97.519 Non-pressure chronic ulcer of other part of right foot with unspecified severity; E78.5 Hyperlipidemia, unspecified; I48.91 Unspecified atrial fibrillation; C85.90 Non-Hodgkin lymphoma, unspecified, unspecified site; D63.0 Anemia in neoplastic disease; I10 Essential (primary) hypertension; L97.529 Non-pressure chronic ulcer of other part of left foot with unspecified severity; Z87.891 Personal history of nicotine dependence; Z79.899 Other long term (current) drug therapy | CPT/HCPCS: 96365; J0696 ==

== ENCOUNTER 2020-01-14 00:04 | Day surgery (SDC) | payer OTHER | END 2020-01-14 09:20 | disposition home or self-care (01) | LOC: ATC 00:04 | DX: L03.115 Cellulitis of right lower limb (principal); L97.519 Non-pressure chronic ulcer of other part of right foot with unspecified severity; E78.5 Hyperlipidemia, unspecified; I10 Essential (primary) hypertension; C85.90 Non-Hodgkin lymphoma, unspecified, unspecified site; D63.0 Anemia in neoplastic disease; I48.91 Unspecified atrial fibrillation; G62.9 Polyneuropathy, unspecified; L97.529 Non-pressure chronic ulcer of other part of left foot with unspecified severity; Z79.01 Long term (current) use of anticoagulants; Z79.899 Other long term (current) drug therapy; Z87.891 Personal history of nicotine dependence | CPT/HCPCS: 96365; J0696 ==

== ENCOUNTER 2020-01-15 00:35 | Day surgery (SDC) | payer OTHER ==
[2020-01-16] MEDS ORDERED: ONDA4 PO (09:10)
== END 2020-01-15 09:20 | disposition home or self-care (01) ==
LOC: ATC 00:35
DX: L03.115 Cellulitis of right lower limb (principal); L97.529 Non-pressure chronic ulcer of other part of left foot with unspecified severity; L97.519 Non-pressure chronic ulcer of other part of right foot with unspecified severity; I48.91 Unspecified atrial fibrillation; G62.9 Polyneuropathy, unspecified; E78.5 Hyperlipidemia, unspecified; C85.90 Non-Hodgkin lymphoma, unspecified, unspecified site; D63.0 Anemia in neoplastic disease; I10 Essential (primary) hypertension; Z87.891 Personal history of nicotine dependence; Z79.01 Long term (current) use of anticoagulants; Z79.899 Other long term (current) drug therapy
CPT/HCPCS: 96365; J0696

== ENCOUNTER 2020-01-16 00:04 | Day surgery (SDC) | payer OTHER ==
[2020-01-16] MEDS ORDERED: ONDA4 PO (09:10)
== END 2020-01-16 09:27 | disposition home or self-care (01) ==
LOC: ATC 00:04
DX: L03.115 Cellulitis of right lower limb (principal); I10 Essential (primary) hypertension; E78.5 Hyperlipidemia, unspecified; I48.91 Unspecified atrial fibrillation; A41.9 Sepsis, unspecified organism; R65.20 Severe sepsis without septic shock; L97.529 Non-pressure chronic ulcer of other part of left foot with unspecified severity; L97.519 Non-pressure chronic ulcer of other part of right foot with unspecified severity; C85.90 Non-Hodgkin lymphoma, unspecified, unspecified site; G62.9 Polyneuropathy, unspecified; Z79.01 Long term (current) use of anticoagulants; Z87.891 Personal history of nicotine dependence; Z79.899 Other long term (current) drug therapy
CPT/HCPCS: 96365; J0696

== ENCOUNTER 2020-01-17 00:02 | Day surgery (SDC) | payer OTHER ==
[~2020-01-17 00:02] MED LIST changes: +ONDA4 PO
== END 2020-01-17 09:15 | disposition home or self-care (01) ==
LOC: ATC 00:02
DX: M86.9 Osteomyelitis, unspecified (principal); I10 Essential (primary) hypertension; I48.91 Unspecified atrial fibrillation; Z79.01 Long term (current) use of anticoagulants; E78.5 Hyperlipidemia, unspecified; Z79.899 Other long term (current) drug therapy
CPT/HCPCS: 96365; J0696

== ENCOUNTER 2020-01-18 00:06 | Day surgery (SDC) | payer OTHER | END 2020-01-18 09:27 | disposition home or self-care (01) | LOC: ATC 00:06 | DX: L03.115 Cellulitis of right lower limb (principal); L97.519 Non-pressure chronic ulcer of other part of right foot with unspecified severity; C85.90 Non-Hodgkin lymphoma, unspecified, unspecified site; I48.91 Unspecified atrial fibrillation; E78.5 Hyperlipidemia, unspecified; I10 Essential (primary) hypertension; L97.529 Non-pressure chronic ulcer of other part of left foot with unspecified severity; D63.0 Anemia in neoplastic disease; A41.9 Sepsis, unspecified organism; R65.20 Severe sepsis without septic shock; G62.9 Polyneuropathy, unspecified; Z79.01 Long term (current) use of anticoagulants; Z87.891 Personal history of nicotine dependence; Z79.899 Other long term (current) drug therapy | CPT/HCPCS: 96365; J0696 ==

== ENCOUNTER 2020-01-19 00:01 | Day surgery (SDC) | payer OTHER | END 2020-01-19 09:24 | disposition home or self-care (01) | LOC: ATC 00:01 | DX: L03.115 Cellulitis of right lower limb (principal); A41.9 Sepsis, unspecified organism; R65.20 Severe sepsis without septic shock; G62.9 Polyneuropathy, unspecified; E78.5 Hyperlipidemia, unspecified; L97.529 Non-pressure chronic ulcer of other part of left foot with unspecified severity; L97.519 Non-pressure chronic ulcer of other part of right foot with unspecified severity; C85.90 Non-Hodgkin lymphoma, unspecified, unspecified site; D63.1 Anemia in chronic kidney disease; I10 Essential (primary) hypertension; G25.81 Restless legs syndrome; Z87.891 Personal history of nicotine dependence; Z79.899 Other long term (current) drug therapy; Z79.01 Long term (current) use of anticoagulants | CPT/HCPCS: 96365; J0696 ==

== ENCOUNTER 2020-01-20 00:12 | Day surgery (SDC) | payer OTHER | END 2020-01-20 09:20 | disposition home or self-care (01) | LOC: ATC 00:12 | DX: L03.115 Cellulitis of right lower limb (principal); I48.91 Unspecified atrial fibrillation; G62.9 Polyneuropathy, unspecified; D64.9 Anemia, unspecified; I10 Essential (primary) hypertension; C85.90 Non-Hodgkin lymphoma, unspecified, unspecified site; L97.519 Non-pressure chronic ulcer of other part of right foot with unspecified severity; L97.529 Non-pressure chronic ulcer of other part of left foot with unspecified severity; Z87.891 Personal history of nicotine dependence; Z79.899 Other long term (current) drug therapy | CPT/HCPCS: J0696 ==

== ENCOUNTER 2020-01-23 00:17 | Day surgery (SDC) | payer OTHER | END 2020-01-23 09:44 | disposition home or self-care (01) | LOC: ATC 00:17 | DX: L03.115 Cellulitis of right lower limb (principal); L97.529 Non-pressure chronic ulcer of other part of left foot with unspecified severity; L97.519 Non-pressure chronic ulcer of other part of right foot with unspecified severity; A41.9 Sepsis, unspecified organism; R65.20 Severe sepsis without septic shock; E78.5 Hyperlipidemia, unspecified; C85.90 Non-Hodgkin lymphoma, unspecified, unspecified site; D63.0 Anemia in neoplastic disease; I10 Essential (primary) hypertension; G25.81 Restless legs syndrome; I48.91 Unspecified atrial fibrillation; G62.9 Polyneuropathy, unspecified; Z87.891 Personal history of nicotine dependence; Z79.899 Other long term (current) drug therapy; Z79.01 Long term (current) use of anticoagulants | CPT/HCPCS: 96365; J0696 ==

== ENCOUNTER 2020-01-24 01:13 | Day surgery (SDC) | payer OTHER | END 2020-01-24 09:40 | disposition home or self-care (01) | LOC: ATC 01:13 | DX: M86.9 Osteomyelitis, unspecified (principal); I48.91 Unspecified atrial fibrillation; I10 Essential (primary) hypertension; E78.5 Hyperlipidemia, unspecified; Z87.891 Personal history of nicotine dependence; Z79.01 Long term (current) use of anticoagulants | CPT/HCPCS: 96365; J0696 ==

== ENCOUNTER 2020-01-25 00:13 | Day surgery (SDC) | payer OTHER | END 2020-01-25 09:36 | disposition home or self-care (01) | LOC: ATC 00:13 | DX: L03.115 Cellulitis of right lower limb (principal); I48.91 Unspecified atrial fibrillation; G62.9 Polyneuropathy, unspecified; E78.5 Hyperlipidemia, unspecified; C85.90 Non-Hodgkin lymphoma, unspecified, unspecified site; I10 Essential (primary) hypertension; L97.829 Non-pressure chronic ulcer of other part of left lower leg with unspecified severity; L97.819 Non-pressure chronic ulcer of other part of right lower leg with unspecified severity; G25.81 Restless legs syndrome; Z87.891 Personal history of nicotine dependence; Z79.899 Other long term (current) drug therapy | CPT/HCPCS: 96365; J0696 ==

== ENCOUNTER 2020-01-26 00:05 | Day surgery (SDC) | payer OTHER ==
[2020-01-27] MEDS ORDERED: NYSTRIT TOP ×2 (09:43→09:44)
== END 2020-01-26 22:58 | disposition home or self-care (01) ==
LOC: ATC 00:05
DX: L03.115 Cellulitis of right lower limb (principal); G62.9 Polyneuropathy, unspecified; E78.5 Hyperlipidemia, unspecified; L97.529 Non-pressure chronic ulcer of other part of left foot with unspecified severity; L97.519 Non-pressure chronic ulcer of other part of right foot with unspecified severity; C85.90 Non-Hodgkin lymphoma, unspecified, unspecified site; D63.0 Anemia in neoplastic disease; G25.81 Restless legs syndrome; I48.91 Unspecified atrial fibrillation; A41.9 Sepsis, unspecified organism; Z79.01 Long term (current) use of anticoagulants; Z87.891 Personal history of nicotine dependence; Z79.899 Other long term (current) drug therapy
CPT/HCPCS: 96365; J0696

== ENCOUNTER 2020-01-27 00:56 | Day surgery (SDC) | payer OTHER ==
[2020-01-27] MEDS ORDERED: NYSTRIT TOP ×2 (09:43→09:44)
== END 2020-01-27 09:58 | disposition home or self-care (01) ==
LOC: ATC 00:56
DX: L03.115 Cellulitis of right lower limb (principal); L97.529 Non-pressure chronic ulcer of other part of left foot with unspecified severity; L97.519 Non-pressure chronic ulcer of other part of right foot with unspecified severity; R65.20 Severe sepsis without septic shock; I48.91 Unspecified atrial fibrillation; G62.9 Polyneuropathy, unspecified; C85.90 Non-Hodgkin lymphoma, unspecified, unspecified site; D63.0 Anemia in neoplastic disease; I10 Essential (primary) hypertension; Z87.891 Personal history of nicotine dependence; E78.5 Hyperlipidemia, unspecified; G25.81 Restless legs syndrome; Z79.899 Other long term (current) drug therapy; Z79.01 Long term (current) use of anticoagulants
CPT/HCPCS: 96365; J0696

== ENCOUNTER 2020-01-28 02:12 | Day surgery (SDC) | payer OTHER ==
[~2020-01-28 02:12] MED LIST changes: +NYSTRIT TOP
== END 2020-01-28 09:17 | disposition home or self-care (01) ==
LOC: ATC 02:12
DX: M86.9 Osteomyelitis, unspecified (principal); I48.91 Unspecified atrial fibrillation; E78.5 Hyperlipidemia, unspecified; I10 Essential (primary) hypertension; C85.90 Non-Hodgkin lymphoma, unspecified, unspecified site; D64.9 Anemia, unspecified; Z79.01 Long term (current) use of anticoagulants; Z79.899 Other long term (current) drug therapy
CPT/HCPCS: 96365; J0696

== ENCOUNTER 2020-01-30 00:12 | Day surgery (SDC) | payer OTHER | END 2020-01-30 09:51 | disposition home or self-care (01) | LOC: ATC 00:12 | DX: L03.115 Cellulitis of right lower limb (principal); L97.529 Non-pressure chronic ulcer of other part of left foot with unspecified severity; L97.519 Non-pressure chronic ulcer of other part of right foot with unspecified severity; G62.9 Polyneuropathy, unspecified; E78.5 Hyperlipidemia, unspecified; C85.96 Non-Hodgkin lymphoma, unspecified, intrapelvic lymph nodes; D63.0 Anemia in neoplastic disease; I10 Essential (primary) hypertension; G25.81 Restless legs syndrome; I48.91 Unspecified atrial fibrillation; A41.9 Sepsis, unspecified organism; Z87.891 Personal history of nicotine dependence; Z79.899 Other long term (current) drug therapy; Z79.01 Long term (current) use of anticoagulants | CPT/HCPCS: J0696 ==

== ENCOUNTER 2020-01-31 00:12 | Day surgery (SDC) | payer OTHER | END 2020-01-31 09:22 | disposition home or self-care (01) | LOC: ATC 00:12 | DX: L03.115 Cellulitis of right lower limb (principal); L97.529 Non-pressure chronic ulcer of other part of left foot with unspecified severity; L97.519 Non-pressure chronic ulcer of other part of right foot with unspecified severity; I48.91 Unspecified atrial fibrillation; G62.9 Polyneuropathy, unspecified; E78.5 Hyperlipidemia, unspecified; C85.90 Non-Hodgkin lymphoma, unspecified, unspecified site; D63.1 Anemia in chronic kidney disease; I10 Essential (primary) hypertension; G25.81 Restless legs syndrome; Z87.891 Personal history of nicotine dependence; Z79.01 Long term (current) use of anticoagulants; Z79.899 Other long term (current) drug therapy | CPT/HCPCS: J0696 ==

== ENCOUNTER 2020-02-01 02:57 | Day surgery (SDC) | payer OTHER | END 2020-02-01 09:35 | disposition home or self-care (01) | LOC: ATC 02:57 | DX: L03.115 Cellulitis of right lower limb (principal); L97.529 Non-pressure chronic ulcer of other part of left foot with unspecified severity; L97.519 Non-pressure chronic ulcer of other part of right foot with unspecified severity; A41.9 Sepsis, unspecified organism; R65.20 Severe sepsis without septic shock; E78.5 Hyperlipidemia, unspecified; C85.90 Non-Hodgkin lymphoma, unspecified, unspecified site; D63.1 Anemia in chronic kidney disease; I10 Essential (primary) hypertension; G25.81 Restless legs syndrome; I48.91 Unspecified atrial fibrillation; Z79.01 Long term (current) use of anticoagulants; Z87.891 Personal history of nicotine dependence; Z79.899 Other long term (current) drug therapy | CPT/HCPCS: J0696 ==

== ENCOUNTER 2020-02-02 00:19 | Day surgery (SDC) | payer OTHER ==
--- NOTE | 2020-02-02 10:23 | NUR ---
PT REPORTS DR HUNT TOLD HIM TO START HIS ORAL ANTIBIOTIC AND TO STOP HIS IV ANTIBIOTICS. CALL PLACED TO DR HUNT OFFICE TO VERIFY, NO ORDER FOUND IN CLINIC.
== END 2020-02-02 10:15 | disposition home or self-care (01) ==
LOC: ATC 00:19
DX: L03.115 Cellulitis of right lower limb (principal); I48.91 Unspecified atrial fibrillation; I10 Essential (primary) hypertension; E78.5 Hyperlipidemia, unspecified; D63.0 Anemia in neoplastic disease; C85.90 Non-Hodgkin lymphoma, unspecified, unspecified site; G25.81 Restless legs syndrome; G62.9 Polyneuropathy, unspecified; L97.529 Non-pressure chronic ulcer of other part of left foot with unspecified severity; L97.519 Non-pressure chronic ulcer of other part of right foot with unspecified severity; Z79.899 Other long term (current) drug therapy; Z79.01 Long term (current) use of anticoagulants; Z87.891 Personal history of nicotine dependence
CPT/HCPCS: 96365; J0696

== ENCOUNTER 2020-08-10 00:02 | Day surgery (SDC) | payer OTHER | END 2020-08-10 22:38 | disposition home or self-care (01) | LOC: WOUND 00:02 | DX: E11.621 Type 2 diabetes mellitus with foot ulcer (principal); E11.59 Type 2 diabetes mellitus with other circulatory complications; M86.171 Other acute osteomyelitis, right ankle and foot; L97.412 Non-pressure chronic ulcer of right heel and midfoot with fat layer exposed; F17.210 Nicotine dependence, cigarettes, uncomplicated; Z79.01 Long term (current) use of anticoagulants; Z79.899 Other long term (current) drug therapy | CPT/HCPCS: G0463 ==

== ENCOUNTER 2020-08-24 00:47 | Day surgery (SDC) | payer OTHER | END 2020-08-24 12:00 | disposition home or self-care (01) | LOC: WOUND 00:47 | DX: E11.621 Type 2 diabetes mellitus with foot ulcer (principal); E11.59 Type 2 diabetes mellitus with other circulatory complications; M86.171 Other acute osteomyelitis, right ankle and foot; L97.412 Non-pressure chronic ulcer of right heel and midfoot with fat layer exposed; Z79.01 Long term (current) use of anticoagulants; Z79.899 Other long term (current) drug therapy | CPT/HCPCS: G0463 ==

== ENCOUNTER 2020-08-30 00:10 | Day surgery (SDC) | payer OTHER | END 2020-08-30 22:37 | disposition home or self-care (01) | LOC: WOUND 00:10 | DX: E11.621 Type 2 diabetes mellitus with foot ulcer (principal); M86.171 Other acute osteomyelitis, right ankle and foot; E11.59 Type 2 diabetes mellitus with other circulatory complications; L97.509 Non-pressure chronic ulcer of other part of unspecified foot with unspecified severity; Z79.899 Other long term (current) drug therapy | CPT/HCPCS: G0463 ==

== ENCOUNTER 2020-09-06 00:49 | Day surgery (SDC) | payer OTHER | END 2020-09-06 22:52 | disposition home or self-care (01) | LOC: WOUND 00:49 | DX: E11.621 Type 2 diabetes mellitus with foot ulcer (principal); L97.412 Non-pressure chronic ulcer of right heel and midfoot with fat layer exposed; E11.52 Type 2 diabetes mellitus with diabetic peripheral angiopathy with gangrene; I96 Gangrene, not elsewhere classified; L89.612 Pressure ulcer of right heel, stage 2; M19.071 Primary osteoarthritis, right ankle and foot; I49.9 Cardiac arrhythmia, unspecified; I48.91 Unspecified atrial fibrillation; E11.42 Type 2 diabetes mellitus with diabetic polyneuropathy; E66.3 Overweight; Z68.35 Body mass index [BMI] 35.0-35.9, adult; Z92.21 Personal history of antineoplastic chemotherapy; Z79.01 Long term (current) use of anticoagulants; Z79.899 Other long term (current) drug therapy | CPT/HCPCS: G0463 ==

== ENCOUNTER 2020-10-04 10:20 | Day surgery (SDC) | payer OTHER | END 2020-10-04 23:34 | disposition home or self-care (01) | LOC: WOUND 10:20 | DX: E11.621 Type 2 diabetes mellitus with foot ulcer (principal); L97.412 Non-pressure chronic ulcer of right heel and midfoot with fat layer exposed; E11.52 Type 2 diabetes mellitus with diabetic peripheral angiopathy with gangrene; I96 Gangrene, not elsewhere classified; E11.59 Type 2 diabetes mellitus with other circulatory complications; I10 Essential (primary) hypertension; I49.9 Cardiac arrhythmia, unspecified; M19.90 Unspecified osteoarthritis, unspecified site; Z92.21 Personal history of antineoplastic chemotherapy; Z89.431 Acquired absence of right foot; Z79.01 Long term (current) use of anticoagulants; Z79.899 Other long term (current) drug therapy; Z51.5 Encounter for palliative care ==

== ENCOUNTER 2020-10-11 00:18 | Day surgery (SDC) | payer OTHER | END 2020-10-11 23:10 | disposition home or self-care (01) | LOC: WOUND 00:18 | DX: E11.621 Type 2 diabetes mellitus with foot ulcer (principal); L97.412 Non-pressure chronic ulcer of right heel and midfoot with fat layer exposed; E11.52 Type 2 diabetes mellitus with diabetic peripheral angiopathy with gangrene; I96 Gangrene, not elsewhere classified; I10 Essential (primary) hypertension; E11.59 Type 2 diabetes mellitus with other circulatory complications; I49.9 Cardiac arrhythmia, unspecified; M19.90 Unspecified osteoarthritis, unspecified site; Z79.01 Long term (current) use of anticoagulants; Z79.899 Other long term (current) drug therapy; Z89.431 Acquired absence of right foot; Z92.21 Personal history of antineoplastic chemotherapy; Z51.5 Encounter for palliative care ==

== ENCOUNTER 2020-10-18 00:21 | Day surgery (SDC) | payer OTHER | END 2020-10-18 22:50 | disposition home or self-care (01) | LOC: WOUND 00:21 | DX: E11.621 Type 2 diabetes mellitus with foot ulcer (principal); E11.59 Type 2 diabetes mellitus with other circulatory complications; I10 Essential (primary) hypertension; L97.412 Non-pressure chronic ulcer of right heel and midfoot with fat layer exposed; Z79.01 Long term (current) use of anticoagulants; Z79.899 Other long term (current) drug therapy | CPT/HCPCS: G0463 ==

== ENCOUNTER 2020-10-24 03:10 | Day surgery (SDC) | payer OTHER | END 2020-10-24 23:28 | disposition home or self-care (01) | LOC: WOUND 03:10 | DX: E11.621 Type 2 diabetes mellitus with foot ulcer (principal); L97.412 Non-pressure chronic ulcer of right heel and midfoot with fat layer exposed; E11.52 Type 2 diabetes mellitus with diabetic peripheral angiopathy with gangrene; I96 Gangrene, not elsewhere classified; E11.59 Type 2 diabetes mellitus with other circulatory complications; I49.9 Cardiac arrhythmia, unspecified; M19.90 Unspecified osteoarthritis, unspecified site; Z79.01 Long term (current) use of anticoagulants; Z79.899 Other long term (current) drug therapy; Z92.3 Personal history of irradiation; Z51.5 Encounter for palliative care | CPT/HCPCS: G0463 ==

== ENCOUNTER 2020-10-30 00:34 | Day surgery (SDC) | payer OTHER | END 2020-10-30 22:59 | disposition home or self-care (01) | LOC: WOUND 00:34 | DX: E11.621 Type 2 diabetes mellitus with foot ulcer (principal); L97.412 Non-pressure chronic ulcer of right heel and midfoot with fat layer exposed; E11.52 Type 2 diabetes mellitus with diabetic peripheral angiopathy with gangrene; I96 Gangrene, not elsewhere classified; E11.59 Type 2 diabetes mellitus with other circulatory complications; I49.9 Cardiac arrhythmia, unspecified; M19.90 Unspecified osteoarthritis, unspecified site; Z79.01 Long term (current) use of anticoagulants; Z79.899 Other long term (current) drug therapy; Z92.21 Personal history of antineoplastic chemotherapy | CPT/HCPCS: G0463 ==

== ENCOUNTER 2020-11-06 00:31 | Day surgery (SDC) | payer OTHER | END 2020-11-06 22:36 | disposition home or self-care (01) | LOC: WOUND 00:31 | DX: E11.621 Type 2 diabetes mellitus with foot ulcer (principal); L97.412 Non-pressure chronic ulcer of right heel and midfoot with fat layer exposed; E11.52 Type 2 diabetes mellitus with diabetic peripheral angiopathy with gangrene; I96 Gangrene, not elsewhere classified; E11.59 Type 2 diabetes mellitus with other circulatory complications; I49.9 Cardiac arrhythmia, unspecified; M19.90 Unspecified osteoarthritis, unspecified site; I10 Essential (primary) hypertension; Z89.431 Acquired absence of right foot; Z79.01 Long term (current) use of anticoagulants; Z79.899 Other long term (current) drug therapy; Z92.21 Personal history of antineoplastic chemotherapy ==

== ENCOUNTER 2020-11-14 00:26 | Day surgery (SDC) | payer OTHER | END 2020-11-14 22:58 | disposition home or self-care (01) | LOC: WOUND 00:26 | DX: E11.621 Type 2 diabetes mellitus with foot ulcer (principal); L97.412 Non-pressure chronic ulcer of right heel and midfoot with fat layer exposed; E11.52 Type 2 diabetes mellitus with diabetic peripheral angiopathy with gangrene; I96 Gangrene, not elsewhere classified; E11.59 Type 2 diabetes mellitus with other circulatory complications; Z89.431 Acquired absence of right foot; I49.9 Cardiac arrhythmia, unspecified; M19.90 Unspecified osteoarthritis, unspecified site; I10 Essential (primary) hypertension; Z79.01 Long term (current) use of anticoagulants; Z79.899 Other long term (current) drug therapy; Z92.21 Personal history of antineoplastic chemotherapy ==

== ENCOUNTER 2020-12-04 00:40 | Day surgery (SDC) | payer OTHER | END 2020-12-04 22:47 | disposition home or self-care (01) | LOC: WOUND 00:40 | DX: E11.621 Type 2 diabetes mellitus with foot ulcer (principal); L97.412 Non-pressure chronic ulcer of right heel and midfoot with fat layer exposed; E11.52 Type 2 diabetes mellitus with diabetic peripheral angiopathy with gangrene; I96 Gangrene, not elsewhere classified; E11.59 Type 2 diabetes mellitus with other circulatory complications; I10 Essential (primary) hypertension; I49.9 Cardiac arrhythmia, unspecified; M19.90 Unspecified osteoarthritis, unspecified site; Z89.431 Acquired absence of right foot; Z86.19 Personal history of other infectious and parasitic diseases; Z92.21 Personal history of antineoplastic chemotherapy ==

== ENCOUNTER 2020-12-18 00:22 | Day surgery (SDC) | payer OTHER | END 2020-12-18 23:11 | disposition home or self-care (01) | LOC: WOUND 00:22 | DX: E11.621 Type 2 diabetes mellitus with foot ulcer (principal); L97.412 Non-pressure chronic ulcer of right heel and midfoot with fat layer exposed; E11.52 Type 2 diabetes mellitus with diabetic peripheral angiopathy with gangrene; I96 Gangrene, not elsewhere classified; E11.59 Type 2 diabetes mellitus with other circulatory complications; I10 Essential (primary) hypertension; I49.9 Cardiac arrhythmia, unspecified; M19.90 Unspecified osteoarthritis, unspecified site; Z92.21 Personal history of antineoplastic chemotherapy; Z89.431 Acquired absence of right foot; Z79.899 Other long term (current) drug therapy ==

== ENCOUNTER 2020-12-25 00:25 | Day surgery (SDC) | payer OTHER | END 2020-12-25 22:50 | disposition home or self-care (01) | LOC: WOUND 00:25 | DX: E11.621 Type 2 diabetes mellitus with foot ulcer (principal); L97.412 Non-pressure chronic ulcer of right heel and midfoot with fat layer exposed; E11.59 Type 2 diabetes mellitus with other circulatory complications; I70.202 Unspecified atherosclerosis of native arteries of extremities, left leg; M86.171 Other acute osteomyelitis, right ankle and foot; I10 Essential (primary) hypertension; Z89.421 Acquired absence of other right toe(s) ==

== ENCOUNTER 2021-01-01 00:18 | Day surgery (SDC) | payer OTHER | END 2021-01-01 23:45 | LOC: WOUND 00:18 | DX: E11.621 Type 2 diabetes mellitus with foot ulcer (principal); L97.412 Non-pressure chronic ulcer of right heel and midfoot with fat layer exposed; E11.40 Type 2 diabetes mellitus with diabetic neuropathy, unspecified; E11.59 Type 2 diabetes mellitus with other circulatory complications; I70.202 Unspecified atherosclerosis of native arteries of extremities, left leg | CPT/HCPCS: G0463 ==

== ENCOUNTER 2021-01-08 01:01 | Day surgery (SDC) | payer OTHER | END 2021-01-08 22:54 | disposition home or self-care (01) | LOC: WOUND 01:01 | DX: E11.621 Type 2 diabetes mellitus with foot ulcer (principal); L97.412 Non-pressure chronic ulcer of right heel and midfoot with fat layer exposed; E11.59 Type 2 diabetes mellitus with other circulatory complications; E11.40 Type 2 diabetes mellitus with diabetic neuropathy, unspecified; I70.202 Unspecified atherosclerosis of native arteries of extremities, left leg; I10 Essential (primary) hypertension; Z89.421 Acquired absence of other right toe(s) | CPT/HCPCS: A9270 ==

== ENCOUNTER 2021-01-15 01:10 | Day surgery (SDC) | payer OTHER | END 2021-01-15 23:45 | disposition home or self-care (01) | LOC: WOUND 01:10 | DX: E11.621 Type 2 diabetes mellitus with foot ulcer (principal); L97.412 Non-pressure chronic ulcer of right heel and midfoot with fat layer exposed; I10 Essential (primary) hypertension; E11.51 Type 2 diabetes mellitus with diabetic peripheral angiopathy without gangrene; I70.202 Unspecified atherosclerosis of native arteries of extremities, left leg; E11.40 Type 2 diabetes mellitus with diabetic neuropathy, unspecified; Z89.421 Acquired absence of other right toe(s) | CPT/HCPCS: 87071; 87075; 87077; 87147; 87186; 87205 ==

== ENCOUNTER 2021-01-22 00:40 | Day surgery (SDC) | payer OTHER | END 2021-01-22 23:07 | disposition home or self-care (01) | LOC: WOUND 00:40 | DX: E11.621 Type 2 diabetes mellitus with foot ulcer (principal); L97.412 Non-pressure chronic ulcer of right heel and midfoot with fat layer exposed; I10 Essential (primary) hypertension; E11.51 Type 2 diabetes mellitus with diabetic peripheral angiopathy without gangrene; I70.202 Unspecified atherosclerosis of native arteries of extremities, left leg; E11.40 Type 2 diabetes mellitus with diabetic neuropathy, unspecified; Z89.421 Acquired absence of other right toe(s) ==

== ENCOUNTER 2021-01-29 00:50 | Day surgery (SDC) | payer OTHER | END 2021-01-29 22:54 | disposition home or self-care (01) | LOC: WOUND 00:50 | DX: E11.621 Type 2 diabetes mellitus with foot ulcer (principal); L97.415 Non-pressure chronic ulcer of right heel and midfoot with muscle involvement without evidence of necrosis; E11.40 Type 2 diabetes mellitus with diabetic neuropathy, unspecified; E11.51 Type 2 diabetes mellitus with diabetic peripheral angiopathy without gangrene; I70.202 Unspecified atherosclerosis of native arteries of extremities, left leg; I10 Essential (primary) hypertension; Z89.421 Acquired absence of other right toe(s) | CPT/HCPCS: A9270 ==

== ENCOUNTER 2021-02-05 08:00 | Day surgery (SDC) | payer OTHER | END 2021-02-05 23:59 | disposition home or self-care (01) | LOC: WOUND 08:00 | DX: E11.621 Type 2 diabetes mellitus with foot ulcer (principal); L97.412 Non-pressure chronic ulcer of right heel and midfoot with fat layer exposed; E11.59 Type 2 diabetes mellitus with other circulatory complications; I70.202 Unspecified atherosclerosis of native arteries of extremities, left leg ==

== ENCOUNTER 2021-02-12 00:35 | Day surgery (SDC) | payer OTHER | END 2021-02-12 22:42 | disposition home or self-care (01) | LOC: WOUND 00:35 | DX: E11.621 Type 2 diabetes mellitus with foot ulcer (principal); L97.415 Non-pressure chronic ulcer of right heel and midfoot with muscle involvement without evidence of necrosis; E11.40 Type 2 diabetes mellitus with diabetic neuropathy, unspecified; E11.51 Type 2 diabetes mellitus with diabetic peripheral angiopathy without gangrene; I70.202 Unspecified atherosclerosis of native arteries of extremities, left leg | CPT/HCPCS: G0463 ==

== ENCOUNTER 2021-02-22 02:13 | Day surgery (SDC) | payer OTHER | END 2021-02-22 22:41 | disposition home or self-care (01) | LOC: WOUND 02:13 | DX: E11.621 Type 2 diabetes mellitus with foot ulcer (principal); E11.69 Type 2 diabetes mellitus with other specified complication; E11.59 Type 2 diabetes mellitus with other circulatory complications; E11.40 Type 2 diabetes mellitus with diabetic neuropathy, unspecified; E11.51 Type 2 diabetes mellitus with diabetic peripheral angiopathy without gangrene; L97.412 Non-pressure chronic ulcer of right heel and midfoot with fat layer exposed; M86.8X7 Other osteomyelitis, ankle and foot; I70.202 Unspecified atherosclerosis of native arteries of extremities, left leg | CPT/HCPCS: G0463 ==

== ENCOUNTER 2021-03-01 00:37 | Day surgery (SDC) | payer OTHER | END 2021-03-01 22:48 | disposition home or self-care (01) | LOC: WOUND 00:37 | DX: E11.621 Type 2 diabetes mellitus with foot ulcer (principal); L97.415 Non-pressure chronic ulcer of right heel and midfoot with muscle involvement without evidence of necrosis | CPT/HCPCS: A9270 ==

== ENCOUNTER 2021-03-08 00:27 | Day surgery (SDC) | payer OTHER | END 2021-03-08 22:55 | disposition home or self-care (01) | LOC: WOUND 00:27 | DX: E11.621 Type 2 diabetes mellitus with foot ulcer (principal); L97.415 Non-pressure chronic ulcer of right heel and midfoot with muscle involvement without evidence of necrosis; E11.59 Type 2 diabetes mellitus with other circulatory complications; I70.202 Unspecified atherosclerosis of native arteries of extremities, left leg | CPT/HCPCS: G0463 ==

== ENCOUNTER 2021-03-15 00:56 | Day surgery (SDC) | payer OTHER | END 2021-03-15 23:08 | disposition home or self-care (01) | LOC: WOUND 00:56 | DX: E11.621 Type 2 diabetes mellitus with foot ulcer (principal); L97.415 Non-pressure chronic ulcer of right heel and midfoot with muscle involvement without evidence of necrosis; E11.40 Type 2 diabetes mellitus with diabetic neuropathy, unspecified; E11.51 Type 2 diabetes mellitus with diabetic peripheral angiopathy without gangrene; I70.202 Unspecified atherosclerosis of native arteries of extremities, left leg | CPT/HCPCS: A9270 ==

== ENCOUNTER 2021-04-05 02:12 | Day surgery (SDC) | payer OTHER | END 2021-04-05 23:06 | disposition home or self-care (01) | LOC: WOUND 02:12 | DX: E11.621 Type 2 diabetes mellitus with foot ulcer (principal); L97.415 Non-pressure chronic ulcer of right heel and midfoot with muscle involvement without evidence of necrosis | CPT/HCPCS: G0463 ==

== ENCOUNTER 2021-04-12 00:53 | Day surgery (SDC) | payer OTHER | END 2021-04-12 23:05 | disposition home or self-care (01) | LOC: WOUND 00:53 | DX: E11.621 Type 2 diabetes mellitus with foot ulcer (principal); L97.415 Non-pressure chronic ulcer of right heel and midfoot with muscle involvement without evidence of necrosis; E11.59 Type 2 diabetes mellitus with other circulatory complications; E11.40 Type 2 diabetes mellitus with diabetic neuropathy, unspecified; I70.202 Unspecified atherosclerosis of native arteries of extremities, left leg | CPT/HCPCS: A9270 ==

== ENCOUNTER 2021-04-25 03:57 | Day surgery (SDC) | payer OTHER | END 2021-04-25 23:04 | disposition home or self-care (01) | LOC: WOUND 03:57 | DX: E11.621 Type 2 diabetes mellitus with foot ulcer (principal); L97.415 Non-pressure chronic ulcer of right heel and midfoot with muscle involvement without evidence of necrosis; E11.59 Type 2 diabetes mellitus with other circulatory complications; E11.40 Type 2 diabetes mellitus with diabetic neuropathy, unspecified; I70.202 Unspecified atherosclerosis of native arteries of extremities, left leg | CPT/HCPCS: A9270 ==

== ENCOUNTER 2021-04-30 09:50 | Day surgery (SDC) | payer OTHER | END 2021-04-30 23:41 | disposition home or self-care (01) | LOC: WOUND 09:50 | DX: E11.621 Type 2 diabetes mellitus with foot ulcer (principal); L97.415 Non-pressure chronic ulcer of right heel and midfoot with muscle involvement without evidence of necrosis; E11.59 Type 2 diabetes mellitus with other circulatory complications; E11.40 Type 2 diabetes mellitus with diabetic neuropathy, unspecified; I70.202 Unspecified atherosclerosis of native arteries of extremities, left leg; I10 Essential (primary) hypertension ==

== ENCOUNTER 2021-05-03 04:37 | Day surgery (SDC) | payer OTHER | END 2021-05-03 22:42 | disposition home or self-care (01) | LOC: WOUND 04:37 | DX: E11.621 Type 2 diabetes mellitus with foot ulcer (principal); E11.40 Type 2 diabetes mellitus with diabetic neuropathy, unspecified; E11.59 Type 2 diabetes mellitus with other circulatory complications; E11.69 Type 2 diabetes mellitus with other specified complication; L97.412 Non-pressure chronic ulcer of right heel and midfoot with fat layer exposed; M86.171 Other acute osteomyelitis, right ankle and foot; I10 Essential (primary) hypertension; Z89.421 Acquired absence of other right toe(s) | CPT/HCPCS: A9270 ==

== ENCOUNTER 2021-05-10 04:20 | Day surgery (SDC) | payer OTHER | END 2021-05-11 00:33 | disposition home or self-care (01) | LOC: WOUND 04:20 | DX: E11.621 Type 2 diabetes mellitus with foot ulcer (principal); L97.415 Non-pressure chronic ulcer of right heel and midfoot with muscle involvement without evidence of necrosis; E11.59 Type 2 diabetes mellitus with other circulatory complications; E11.40 Type 2 diabetes mellitus with diabetic neuropathy, unspecified; I70.202 Unspecified atherosclerosis of native arteries of extremities, left leg; I10 Essential (primary) hypertension ==

== ENCOUNTER 2021-05-20 01:00 | Day surgery (SDC) | payer OTHER | END 2021-05-21 02:20 | disposition home or self-care (01) | LOC: WOUND 01:00 | DX: E11.621 Type 2 diabetes mellitus with foot ulcer (principal); L97.413 Non-pressure chronic ulcer of right heel and midfoot with necrosis of muscle; E11.59 Type 2 diabetes mellitus with other circulatory complications; E11.40 Type 2 diabetes mellitus with diabetic neuropathy, unspecified; I70.202 Unspecified atherosclerosis of native arteries of extremities, left leg; I10 Essential (primary) hypertension | CPT/HCPCS: A9270 ==

== ENCOUNTER 2021-05-31 05:02 | Day surgery (SDC) | payer OTHER | END 2021-05-31 23:40 | disposition home or self-care (01) | LOC: WOUND 05:02 | DX: E11.621 Type 2 diabetes mellitus with foot ulcer (principal); L97.415 Non-pressure chronic ulcer of right heel and midfoot with muscle involvement without evidence of necrosis; E11.59 Type 2 diabetes mellitus with other circulatory complications; E11.40 Type 2 diabetes mellitus with diabetic neuropathy, unspecified; I70.202 Unspecified atherosclerosis of native arteries of extremities, left leg; I10 Essential (primary) hypertension; Z89.431 Acquired absence of right foot | CPT/HCPCS: A9270 ==

== ENCOUNTER 2021-06-07 00:48 | Day surgery (SDC) | payer OTHER | END 2021-06-07 23:00 | disposition home or self-care (01) | LOC: WOUND 00:48 | DX: E11.621 Type 2 diabetes mellitus with foot ulcer (principal); L97.415 Non-pressure chronic ulcer of right heel and midfoot with muscle involvement without evidence of necrosis; E11.59 Type 2 diabetes mellitus with other circulatory complications; E11.40 Type 2 diabetes mellitus with diabetic neuropathy, unspecified; I70.202 Unspecified atherosclerosis of native arteries of extremities, left leg; I10 Essential (primary) hypertension | CPT/HCPCS: A9270; G0463 ==

== ENCOUNTER 2021-06-14 01:31 | Day surgery (SDC) | payer OTHER | END 2021-06-14 22:42 | disposition home or self-care (01) | LOC: WOUND 01:31 | DX: E11.621 Type 2 diabetes mellitus with foot ulcer (principal); L97.415 Non-pressure chronic ulcer of right heel and midfoot with muscle involvement without evidence of necrosis; E11.59 Type 2 diabetes mellitus with other circulatory complications; E11.40 Type 2 diabetes mellitus with diabetic neuropathy, unspecified; I70.202 Unspecified atherosclerosis of native arteries of extremities, left leg; I10 Essential (primary) hypertension | CPT/HCPCS: A9270; G0463 ==

== ENCOUNTER 2021-06-28 01:23 | Day surgery (SDC) | payer MEDICARE, OTHER | END 2021-06-28 23:15 | disposition home or self-care (01) | LOC: WOUND 01:23 | DX: E11.621 Type 2 diabetes mellitus with foot ulcer (principal); L97.415 Non-pressure chronic ulcer of right heel and midfoot with muscle involvement without evidence of necrosis; E11.59 Type 2 diabetes mellitus with other circulatory complications; E11.40 Type 2 diabetes mellitus with diabetic neuropathy, unspecified; E11.51 Type 2 diabetes mellitus with diabetic peripheral angiopathy without gangrene; I70.202 Unspecified atherosclerosis of native arteries of extremities, left leg | CPT/HCPCS: A9270; G0463 ==

== ENCOUNTER 2021-07-12 01:40 | Day surgery (SDC) | payer MEDICARE, OTHER | END 2021-07-12 23:37 | disposition home or self-care (01) | LOC: WOUND 01:40 | DX: E11.621 Type 2 diabetes mellitus with foot ulcer (principal); L97.419 Non-pressure chronic ulcer of right heel and midfoot with unspecified severity; E11.51 Type 2 diabetes mellitus with diabetic peripheral angiopathy without gangrene; I70.202 Unspecified atherosclerosis of native arteries of extremities, left leg; E11.59 Type 2 diabetes mellitus with other circulatory complications; E11.40 Type 2 diabetes mellitus with diabetic neuropathy, unspecified | CPT/HCPCS: A9270 ==

== ENCOUNTER 2021-07-26 02:34 | Day surgery (SDC) | payer MEDICARE, OTHER | END 2021-07-26 23:15 | disposition home or self-care (01) | LOC: WOUND 02:34 | DX: E11.621 Type 2 diabetes mellitus with foot ulcer (principal); L89.893 Pressure ulcer of other site, stage 3; L97.415 Non-pressure chronic ulcer of right heel and midfoot with muscle involvement without evidence of necrosis; E11.51 Type 2 diabetes mellitus with diabetic peripheral angiopathy without gangrene; I70.202 Unspecified atherosclerosis of native arteries of extremities, left leg; E11.59 Type 2 diabetes mellitus with other circulatory complications; E11.40 Type 2 diabetes mellitus with diabetic neuropathy, unspecified; I10 Essential (primary) hypertension; Z89.431 Acquired absence of right foot | CPT/HCPCS: G0463 ==

== ENCOUNTER 2021-08-09 01:16 | Day surgery (SDC) | payer MEDICARE, OTHER | END 2021-08-09 23:02 | disposition home or self-care (01) | LOC: WOUND 01:16 | DX: E11.621 Type 2 diabetes mellitus with foot ulcer (principal); L97.519 Non-pressure chronic ulcer of other part of right foot with unspecified severity; E11.69 Type 2 diabetes mellitus with other specified complication; M86.171 Other acute osteomyelitis, right ankle and foot; I10 Essential (primary) hypertension; Z89.431 Acquired absence of right foot; E11.59 Type 2 diabetes mellitus with other circulatory complications; I70.202 Unspecified atherosclerosis of native arteries of extremities, left leg | CPT/HCPCS: G0463 ==

== ENCOUNTER 2021-08-23 04:24 | Day surgery (SDC) | payer MEDICARE, OTHER | END 2021-08-23 23:14 | disposition home or self-care (01) | LOC: WOUND 04:24 | DX: E11.621 Type 2 diabetes mellitus with foot ulcer (principal); L97.415 Non-pressure chronic ulcer of right heel and midfoot with muscle involvement without evidence of necrosis; E11.59 Type 2 diabetes mellitus with other circulatory complications; E11.40 Type 2 diabetes mellitus with diabetic neuropathy, unspecified; E11.51 Type 2 diabetes mellitus with diabetic peripheral angiopathy without gangrene; I70.202 Unspecified atherosclerosis of native arteries of extremities, left leg; I10 Essential (primary) hypertension | CPT/HCPCS: A9270 ==

== ENCOUNTER 2021-08-30 00:38 | Day surgery (SDC) | payer MEDICARE, OTHER | END 2021-08-30 12:00 | disposition home or self-care (01) | LOC: WOUND 00:38 | DX: E11.621 Type 2 diabetes mellitus with foot ulcer (principal); L97.415 Non-pressure chronic ulcer of right heel and midfoot with muscle involvement without evidence of necrosis; L03.115 Cellulitis of right lower limb; I70.202 Unspecified atherosclerosis of native arteries of extremities, left leg; E11.59 Type 2 diabetes mellitus with other circulatory complications; E11.40 Type 2 diabetes mellitus with diabetic neuropathy, unspecified; I10 Essential (primary) hypertension | CPT/HCPCS: A9270; G0463; J0696 ==

== ENCOUNTER 2021-09-06 01:19 | Day surgery (SDC) | payer MEDICARE, OTHER | END 2021-09-06 23:10 | disposition home or self-care (01) | LOC: WOUND 01:19 | DX: E11.621 Type 2 diabetes mellitus with foot ulcer (principal); L97.415 Non-pressure chronic ulcer of right heel and midfoot with muscle involvement without evidence of necrosis; L03.115 Cellulitis of right lower limb; E11.59 Type 2 diabetes mellitus with other circulatory complications; E11.40 Type 2 diabetes mellitus with diabetic neuropathy, unspecified; E11.51 Type 2 diabetes mellitus with diabetic peripheral angiopathy without gangrene; I70.202 Unspecified atherosclerosis of native arteries of extremities, left leg; I10 Essential (primary) hypertension | CPT/HCPCS: A9270 ==

== ENCOUNTER 2021-09-18 04:45 | Day surgery (SDC) | payer MEDICARE, OTHER | END 2021-09-18 23:57 | disposition home or self-care (01) | LOC: WOUND 04:45 | DX: E11.621 Type 2 diabetes mellitus with foot ulcer (principal); L97.415 Non-pressure chronic ulcer of right heel and midfoot with muscle involvement without evidence of necrosis | CPT/HCPCS: A9270 ==

== ENCOUNTER 2021-09-25 01:36 | Day surgery (SDC) | payer MEDICARE, OTHER | END 2021-09-25 23:01 | disposition home or self-care (01) | LOC: WOUND 01:36 | DX: E11.621 Type 2 diabetes mellitus with foot ulcer (principal); L97.415 Non-pressure chronic ulcer of right heel and midfoot with muscle involvement without evidence of necrosis; L03.115 Cellulitis of right lower limb; E11.59 Type 2 diabetes mellitus with other circulatory complications; E11.40 Type 2 diabetes mellitus with diabetic neuropathy, unspecified; E11.51 Type 2 diabetes mellitus with diabetic peripheral angiopathy without gangrene; I70.202 Unspecified atherosclerosis of native arteries of extremities, left leg | CPT/HCPCS: A9270 ==

== ENCOUNTER 2021-10-16 03:23 | Day surgery (SDC) | payer OTHER, MEDICARE | END 2021-10-16 23:49 | disposition home or self-care (01) | LOC: WOUND 03:23 | DX: E11.621 Type 2 diabetes mellitus with foot ulcer (principal); L97.415 Non-pressure chronic ulcer of right heel and midfoot with muscle involvement without evidence of necrosis; L03.115 Cellulitis of right lower limb; E11.59 Type 2 diabetes mellitus with other circulatory complications; E11.40 Type 2 diabetes mellitus with diabetic neuropathy, unspecified; E11.51 Type 2 diabetes mellitus with diabetic peripheral angiopathy without gangrene; I70.202 Unspecified atherosclerosis of native arteries of extremities, left leg; I10 Essential (primary) hypertension | CPT/HCPCS: A9270; G0463 ==

== ENCOUNTER 2021-10-30 02:06 | Day surgery (SDC) | payer MEDICARE, OTHER | END 2021-10-30 23:09 | disposition home or self-care (01) | LOC: WOUND 02:06 | DX: E11.621 Type 2 diabetes mellitus with foot ulcer (principal); L97.415 Non-pressure chronic ulcer of right heel and midfoot with muscle involvement without evidence of necrosis; L03.115 Cellulitis of right lower limb; E11.59 Type 2 diabetes mellitus with other circulatory complications; E11.40 Type 2 diabetes mellitus with diabetic neuropathy, unspecified; E11.51 Type 2 diabetes mellitus with diabetic peripheral angiopathy without gangrene; I70.202 Unspecified atherosclerosis of native arteries of extremities, left leg; I10 Essential (primary) hypertension | CPT/HCPCS: A9270; Q4133 ==

== ENCOUNTER 2021-11-06 00:38 | Day surgery (SDC) | payer MEDICARE, OTHER | END 2021-11-06 23:10 | disposition home or self-care (01) | LOC: WOUND 00:38 | PROC: XHRPXF7 Replacement of Skin with Bioengineered Allogeneic Construct, External Approach, New Technology Group 7 (ICD-10-PCS; principal; 2021-11-06) | DX: E11.621 Type 2 diabetes mellitus with foot ulcer (principal); L97.415 Non-pressure chronic ulcer of right heel and midfoot with muscle involvement without evidence of necrosis; I70.25 Atherosclerosis of native arteries of other extremities with ulceration; L03.115 Cellulitis of right lower limb; I10 Essential (primary) hypertension; E11.40 Type 2 diabetes mellitus with diabetic neuropathy, unspecified; Z89.431 Acquired absence of right foot | CPT/HCPCS: A9270; Q4133 ==

== ENCOUNTER 2021-11-13 03:06 | Day surgery (SDC) | payer MEDICARE, OTHER | END 2021-11-13 23:06 | disposition home or self-care (01) | LOC: WOUND 03:06 | PROC: XHRPXF7 Replacement of Skin with Bioengineered Allogeneic Construct, External Approach, New Technology Group 7 (ICD-10-PCS; principal; 2021-11-13) | DX: E11.621 Type 2 diabetes mellitus with foot ulcer (principal); L97.415 Non-pressure chronic ulcer of right heel and midfoot with muscle involvement without evidence of necrosis; L89.899 Pressure ulcer of other site, unspecified stage; L03.115 Cellulitis of right lower limb; I70.202 Unspecified atherosclerosis of native arteries of extremities, left leg; I10 Essential (primary) hypertension; E11.40 Type 2 diabetes mellitus with diabetic neuropathy, unspecified; Z89.431 Acquired absence of right foot | CPT/HCPCS: Q4133 ==

== ENCOUNTER 2021-11-20 05:53 | Day surgery (SDC) | payer MEDICARE, OTHER | END 2021-11-20 22:37 | disposition home or self-care (01) | LOC: WOUND 05:53 | PROC: XHRPXF7 Replacement of Skin with Bioengineered Allogeneic Construct, External Approach, New Technology Group 7 (ICD-10-PCS; principal; 2021-11-20) | DX: E11.621 Type 2 diabetes mellitus with foot ulcer (principal); L97.415 Non-pressure chronic ulcer of right heel and midfoot with muscle involvement without evidence of necrosis; L03.115 Cellulitis of right lower limb; I70.202 Unspecified atherosclerosis of native arteries of extremities, left leg; I10 Essential (primary) hypertension; Z89.431 Acquired absence of right foot | CPT/HCPCS: A9270; Q4133 ==

== ENCOUNTER 2021-11-27 03:08 | Day surgery (SDC) | payer MEDICARE, OTHER | END 2021-11-28 12:00 | disposition home or self-care (01) | LOC: WOUND 03:08 | DX: L03.115 Cellulitis of right lower limb (principal); E11.621 Type 2 diabetes mellitus with foot ulcer; E11.59 Type 2 diabetes mellitus with other circulatory complications; E11.40 Type 2 diabetes mellitus with diabetic neuropathy, unspecified; I70.202 Unspecified atherosclerosis of native arteries of extremities, left leg | CPT/HCPCS: G0463 ==

== ENCOUNTER 2021-12-03 02:27 | Day surgery (SDC) | payer OTHER, MEDICARE ==
[2021-12-04] MEDS ORDERED: B-121000 MC7 PO (20:11)
[2021-12-04] MEDS ORDERED: THERA-D2000 UNIT PO (20:11)
[2021-12-04] MEDS ORDERED: FOLI1 PO (20:12)
[2021-12-04] MEDS ORDERED: PREG75 PO (20:12)
[2021-12-04] MEDS ORDERED: CYCL10 PO (20:12)
== END 2021-12-03 23:13 | disposition home or self-care (01) ==
LOC: WOUND 02:27
DX: E11.621 Type 2 diabetes mellitus with foot ulcer (principal); L97.415 Non-pressure chronic ulcer of right heel and midfoot with muscle involvement without evidence of necrosis; L03.115 Cellulitis of right lower limb; E11.40 Type 2 diabetes mellitus with diabetic neuropathy, unspecified; I70.202 Unspecified atherosclerosis of native arteries of extremities, left leg; E11.59 Type 2 diabetes mellitus with other circulatory complications
CPT/HCPCS: G0463

== ENCOUNTER 2021-12-04 19:59 | Inpatient (IN) | payer OTHER, MEDICARE ==
[~2021-12-04] VITALS: Ht 193 cm; Wt 125.5 kg
[2021-12-04] MEDS ORDERED: THERA-D2000 UNIT PO (20:11)
[2021-12-04] MEDS ORDERED: B-121000 MC7 PO (20:11)
[2021-12-04] MEDS ORDERED: PREG75 PO (20:12)
[2021-12-04] MEDS ORDERED: FOLI1 PO (20:12)
[2021-12-04] MEDS ORDERED: CYCL10 PO (20:12)
[2021-12-05 06:14] LABS: Hematocrit 47.4 % (37.0-53.0); Hemoglobin 15.4 g/dL (13.5-17.5); Mean Corpuscular HGB 28.1 pg (26.0-34.0); Mean Corpuscular HGB Conc 32.5 g/dL (31.5-36.5); Mean Corpuscular Volume 87 fL (80-100); Mean Platelet Volume 8.9 fL (9.1-12.4); Platelet Count 219 K/mm3 (150-400); RDW Coefficient Variation 13.5 % (11.7-14.2); RDW Standard Deviation 43.6 fL (35.1-46.3); Red Blood Cell Count 5.48 M/mm3 (4.30-5.90); White Blood Cell Count 7.27 K/mm3 (4.00-11.30)
[2021-12-05 06:33] LABS: Anion Gap 5 mmol/L (6-16); Blood Urea Nitrogen 9 mg/dL (8-24); Bun/Creatinine Ratio 13.5 (12.0-20.0); CO2, Blood 30 mmol/L (21-32); Calcium, Blood 9.3 mg/dL (8.5-10.1); Chloride, Blood 101 mmol/L (98-108); Creatinine, Blood 0.67 mg/dL (0.60-1.20); Glomerular Filtration Rate >60 (60-); Glucose, Blood 138 mg/dL (70-99); Potassium, Blood 4.2 mmol/L (3.5-5.5); Sodium, Blood 136 mmol/L (136-145)
--- NOTE | 2021-12-05 15:24 | NUR ---
TRANSFER SUMMARY: LATE ENTRY: PATIENT REPORTS HIGH LEVEL OF PAIN IN PERIORBITAL REGION. TISSUE SURROUNDING THE EYE IS VERY SWOLLEN (3+ EDEMA). THE TISSUE IS INTACT. THE EYE IS WEEPING CLEAR MINIMAL DRAINAGE. PATIENT REPORTS SENSITIVITY TO LIGHT. MEDICATED PER PRNS AND DARK ENVIRONMENT MAINTAINEDIN THE ROOM. PATIENT IS ALERT AND ORIENTED X4. PATIENT INDEPENDENT IN THE ROOM.
--- NOTE | 2021-12-05 16:56 | NUR ---
DAY SHIFT SUMMARY PT TRANSFERED IN FROM ED. 65 YR OLD MALE WITH ORBITAL CELLULITIS TO RT EYE. C/O PAIN WITH CELLULITIS, MEDICATED PER EMAR. PT EXPERIENCING LIGHT SENSITIVIEY. PT ON RA, A/O X4, INDEPENDENT IN ROOM. WOUND TO BOTTOM OF RT FOOT COVERED WITH BLUE ADHESIVE BANDAGE PLACED BY WOUND CARE CLINIC. PT STATES HE SEES WOUND CARE ONCE WEEKLY FOR DRESSING CHANGES. STATES LAST WOUND CARE APPOINTMENT WAS 12/03/21. AMPUTATION OF TOES TO RT FOOT. PT ORIENTED TO ROOM AND CALL LIGHT. CALL LIGHT WITHIN REACH.
[2021-12-05 23:28] LABS: Vancomycin, Trough 17.5 ug/mL (5.0-10.0)
--- NOTE | 2021-12-06 04:17 | NUR ---
SHIFT SUMMARY PT ADMITTED FOR ORBITAL CELLULITIS ON RIGHT EYE.FULL CODE STATUS.PT IS AA04.PT IS INDEPENDENT, PLEASANT AND COOPERATIVE. VSS REVIEWED.ALL MEDS ALONG WITH PRN PAIN MEDICATION GIVEN PER EMAR.RIGHT FOOT TOES AMPUTATION.PT IS RESTING COMFORTABLY AT THIS TIME.BED IN LOWER POSITION AND CALL LIGHT IN EASY REACH.WILL CONTINUE TO MONITOR.
[2021-12-06 05:54] LABS: Hematocrit 49.6 % (37.0-53.0); Mean Corpuscular HGB 27.5 pg (26.0-34.0); Mean Corpuscular HGB Conc 32.3 g/dL (31.5-36.5); Mean Corpuscular Volume 85 fL (80-100); Mean Platelet Volume 9.3 fL (9.1-12.4); Platelet Count 229 K/mm3 (150-400); RDW Coefficient Variation 13.7 % (11.7-14.2); RDW Standard Deviation 42.6 fL (35.1-46.3); Red Blood Cell Count 5.81 M/mm3 (4.30-5.90); White Blood Cell Count 7.47 K/mm3 (4.00-11.30)
--- NOTE | 2021-12-06 17:25 | NUR ---
DAY SHIFT SUMMARY. PLEASANT 66 YEAR OLD MALE PT. C/O PAIN IN RT EYE WITH LIGHT SENSITIVITY. WELL DRILL OPERATOR CABLE TOOL DR BAILEY ROUNDED ON PT TODAY. PT ALSO HAD A VISITOR AT BEDSIDE TODAY, TODAY IS HIS BIRTHDAY. STATES PRESSURE IN EYE IS LESS TODAY THAN YESTERDAY BUT PAIN IS STILL THERE. WOUND CARE ORDERS RECEIVED FROM WOUND CARE CLINIC WHO SEES THIS PT OUTPATIENT. DRESSING CHANGES PER ORDER. CALL LIGHT WITHIN REACH OF PT, PT DOES CALL APPROPRIATELY. MEDICATED PER EMAR.
[2021-12-06 23:19] LABS: Vancomycin, Trough 21.1 ug/mL (5.0-10.0)
--- NOTE | 2021-12-07 04:32 | NUR ---
SHIFT SUMMARY PT IS AAOX4,PLEASANT AND COOPERATIVE WITH CARE. PT IS STILL COMPLAINING OF PAIN ON THE RIGHT EYE.PT ASKS FOR PAIN MED EVERY 2 -3 HOURS.PT MEDICATED PER EMAR.VSS REVIEWED. ALL MEDS GIVEN PER EMAR.DRESSING ON RIGHT FOOT INTACT. PT IS RESTING NOW, NO SIGN OF DISTRESS NOTED . BED IN LOWER POSITION AND CALL LIGHT IN EASY REACH.WILL CONTINUE TO MONITOR.
--- NOTE | 2021-12-07 08:00 | NUR ---
pt laying in bed complaining of pain in his right eye, a/ox3, pleasant and cooperative with care, follows commands well, lungs are clear dim in bases, resp even and unlabored, no cough noted, hrr, no edema ntoed, cap refill <3sec, vs stable, afebrile, iv site is clear and patent, btx4, abd flat soft nontender, voids without diff, skin has wound to right foot with dressing in place, toes amputated to same foot, brandy ramsey, call light in reach.
--- NOTE | 2021-12-07 18:29 | NUR ---
pt sleeping when left undisturbed, poor appetite, no acute changes this shift. call light in reach.
--- NOTE | 2021-12-08 04:58 | NUR ---
SHIFT SUMMARY NO NEW CONCERNS FOR THE NIGHT .PT IS AAOX4. ALL MEDS WERE GIVEN PER EMAR.PT WS MEDICATED FOR PAIN NEEDED.DRESSING ON FOOT INTACT. PT IS INDEPENDENT. CALL LIGHT IN EASY REACH. WILL CONTINUE TO MONITOR.
[2021-12-08 05:23] LABS: Creatinine, Blood 0.71 mg/dL (0.60-1.20); Vancomycin, Trough 14.7 ug/mL (5.0-10.0)
--- NOTE | 2021-12-08 18:29 | NUR ---
SHIFT SUMMARY 65 Y MALE ADMITTED WITH ORBITAL CELLULITIS OF THE RIGHT EYE. PT REMAINED IN BED T/O DAY AND CONTINUED TO HAVE HIGH LEVEL OF PAIN. PT MEDICATED PER EMAR WITH SOME RELIEF. PT HAS BEEN PLEASANT & COOPERATIVE T/O DAY. NO OTHER CHANGES THIS SHIFT.
--- NOTE | 2021-12-09 04:07 | NUR ---
SHIFT SUMMARY A&OX4, AD DALLAS IN ROOM, IRREGULAR HEART BEAT HX AFIB, LCTA E/U RESP. L EYE CELLULITS TREATED PER EMAR. WOUND TO LEFT HEEL DRESSING CDI, PRN MEDICATIONS PROVIDED PER EMAR FOR COMPLAINTS OF PAIN.
--- NOTE | 2021-12-10 05:04 | NUR ---
SHIFT SUMMARY AOX4. VSS. REPORTS 8/10 PAIN AROUND R EYE, MEDICATED 2X c 50MCG FENTANYL, 1X OXYCODONE & SCHEDULED CELEBREX FOR PAIN. STATES ONLY MINIMAL RELIEF. R EYE IS SWOLLEN, RED, WARM TO TOUCH, PT STATES HE HAS NO VISION CHANGES BUT DOES REPORT PHOTOPHOBIA. R FOOT WOUND DRESSING C/D/I. CALL LIGHT IN REACH & PT ABLE TO MAKE NEEDS KNOWN. WCTM.
[2021-12-10 08:44] LABS: Hematocrit 52.4 % (37.0-53.0); Hemoglobin 17.2 g/dL (13.5-17.5); Mean Corpuscular HGB 28.2 pg (26.0-34.0); Mean Corpuscular HGB Conc 32.8 g/dL (31.5-36.5); Mean Corpuscular Volume 86 fL (80-100); Mean Platelet Volume 9.2 fL (9.1-12.4); Platelet Count 205 K/mm3 (150-400); RDW Coefficient Variation 13.7 % (11.7-14.2); RDW Standard Deviation 42.4 fL (35.1-46.3); White Blood Cell Count 9.15 K/mm3 (4.00-11.30)
[2021-12-10 09:01] LABS: Anion Gap 6 mmol/L (6-16); Blood Urea Nitrogen 15 mg/dL (8-24); Bun/Creatinine Ratio 21.6 (12.0-20.0); CO2, Blood 28 mmol/L (21-32); Calcium, Blood 8.7 mg/dL (8.5-10.1); Chloride, Blood 100 mmol/L (98-108); Creatinine, Blood 0.69 mg/dL (0.60-1.20); Glomerular Filtration Rate >60 (60-); Glucose, Blood 138 mg/dL (70-99); Potassium, Blood 4.1 mmol/L (3.5-5.5); Sodium, Blood 134 mmol/L (136-145)
[2021-12-10 09:22] LABS: BASOPHILS ABSOLUTE MAN 0.09 K/mm3 (0.00-0.23); BASOPHILS PERCENT MAN 1 % (0-2); EOSINOPHILS ABSOLUTE MAN 0.36 K/mm3 (0.00-0.68); EOSINOPHILS PERCENT MAN 4 % (0-6); LYMPHOCYTES ABSOLUTE MAN 4.39 K/mm3 (0.84-5.20); LYMPHOCYTES PERCENT MAN 48 % (21-46); MONOCYTES ABSOLUTE MAN 0.64 K/mm3 (0.16-1.47); MONOCYTES PERCENT MAN 7 % (4-13); NEUTROPHILS ABSOLUTE MAN 3.66 K/mm3 (1.96-9.15); SEG NEUTROPHILS PERCENT MAN 40 % (41-73); TOTAL CELLS COUNTED 100
[2021-12-10] MEDS ORDERED: Acetaminophen650 M1 PO (10:43)
[2021-12-10] MEDS ORDERED: ERYT1OIN BOTHEYES (10:45)
[2021-12-10] MEDS ORDERED: OXYC5 PO (10:46)
[2021-12-10] MEDS ORDERED: VISBIOME 112.51 EACH PO (10:48)
[2021-12-10] MEDS ORDERED: AMOCLA875 PO (10:49)
--- NOTE | 2021-12-10 12:00 | NUR ---
PATIENT D/C'D TO HOME WITH FAMILY. RX MEDICATIONS FAXED TO [facility]. HARD SCRIPT FOR OXYCODONE GIVEN TO PATIENT. DC INSTUCTIONS AND EDUCATION DISCUSSED WITH PATIENT AND COPY PROVIDED. PATIENT DENIES ANY FURTHER QUESTIONS OR CONCERNS.
== END 2021-12-10 11:55 | disposition home or self-care (01) | DRG 121 ==
LOC: ER 19:59 → MEDS 23:17 → ERHOLD 23:17 → MEDS 12-05 13:33
PROVIDERS: Internal Medicine; ADMIT Internal Medicine
DX: H05.011 Cellulitis of right orbit (principal); C85.90 Non-Hodgkin lymphoma, unspecified, unspecified site; I48.20 Chronic atrial fibrillation, unspecified; I10 Essential (primary) hypertension; E78.00 Pure hypercholesterolemia, unspecified; G89.29 Other chronic pain; M54.9 Dorsalgia, unspecified; H04.001 Unspecified dacryoadenitis, right lacrimal gland; F17.210 Nicotine dependence, cigarettes, uncomplicated; G25.81 Restless legs syndrome; E66.9 Obesity, unspecified; Z68.35 Body mass index [BMI] 35.0-35.9, adult; Z86.14 Personal history of Methicillin resistant Staphylococcus aureus infection; Z89.431 Acquired absence of right foot; Z98.890 Other specified postprocedural states; Z79.01 Long term (current) use of anticoagulants; Z79.899 Other long term (current) drug therapy
CPT/HCPCS: 36415; 70481; 80048; 80202; 82565; 85025; 85027; 99284-25; A9270; C9113; J0696; J2405; J3010; J3370; J7030; J7050; Q9967

== ENCOUNTER 2021-12-31 09:41 | Day surgery (SDC) | payer OTHER, MEDICARE ==
[~2021-12-31 09:41] MED LIST changes: +Acetaminophen650 M1 PO; +B-121000 MC7 PO; +CYCL10 PO; +ERYT1OIN BOTHEYES; +FOLI1 PO; +OXYC5 PO; +PREG75 PO; +THERA-D2000 UNIT PO; +VISBIOME 112.51 EACH PO
== END 2022-01-01 00:59 | disposition home or self-care (01) ==
LOC: WOUND 09:41
DX: E11.621 Type 2 diabetes mellitus with foot ulcer (principal); L97.415 Non-pressure chronic ulcer of right heel and midfoot with muscle involvement without evidence of necrosis; E11.59 Type 2 diabetes mellitus with other circulatory complications; I70.202 Unspecified atherosclerosis of native arteries of extremities, left leg
CPT/HCPCS: G0463

== ENCOUNTER 2022-01-08 01:06 | Day surgery (SDC) | payer OTHER, MEDICARE | END 2022-01-08 23:32 | disposition home or self-care (01) | LOC: WOUND 01:06 | DX: E11.621 Type 2 diabetes mellitus with foot ulcer (principal); L97.415 Non-pressure chronic ulcer of right heel and midfoot with muscle involvement without evidence of necrosis; E11.51 Type 2 diabetes mellitus with diabetic peripheral angiopathy without gangrene; I70.202 Unspecified atherosclerosis of native arteries of extremities, left leg; E11.59 Type 2 diabetes mellitus with other circulatory complications; I10 Essential (primary) hypertension; Z89.431 Acquired absence of right foot | CPT/HCPCS: G0463 ==

== ENCOUNTER 2022-01-15 00:15 | Day surgery (SDC) | payer OTHER, MEDICARE | END 2022-01-15 23:19 | disposition home or self-care (01) | LOC: WOUND 00:15 | DX: E11.621 Type 2 diabetes mellitus with foot ulcer (principal); L97.515 Non-pressure chronic ulcer of other part of right foot with muscle involvement without evidence of necrosis; L89.893 Pressure ulcer of other site, stage 3; E11.51 Type 2 diabetes mellitus with diabetic peripheral angiopathy without gangrene; I70.202 Unspecified atherosclerosis of native arteries of extremities, left leg; E11.59 Type 2 diabetes mellitus with other circulatory complications; I10 Essential (primary) hypertension; Z89.431 Acquired absence of right foot | CPT/HCPCS: G0463 ==

== ENCOUNTER 2022-01-29 01:55 | Day surgery (SDC) | payer OTHER | END 2022-01-29 23:17 | disposition home or self-care (01) | LOC: WOUND 01:55 | DX: E11.621 Type 2 diabetes mellitus with foot ulcer (principal); L97.415 Non-pressure chronic ulcer of right heel and midfoot with muscle involvement without evidence of necrosis; E11.59 Type 2 diabetes mellitus with other circulatory complications; E11.40 Type 2 diabetes mellitus with diabetic neuropathy, unspecified; E11.51 Type 2 diabetes mellitus with diabetic peripheral angiopathy without gangrene; I70.202 Unspecified atherosclerosis of native arteries of extremities, left leg; I10 Essential (primary) hypertension | CPT/HCPCS: Q4133 ==

== ENCOUNTER 2022-02-05 03:33 | Day surgery (SDC) | payer OTHER | END 2022-02-05 22:57 | disposition home or self-care (01) | LOC: WOUND 03:33 | DX: E11.621 Type 2 diabetes mellitus with foot ulcer (principal); L97.415 Non-pressure chronic ulcer of right heel and midfoot with muscle involvement without evidence of necrosis; L89.899 Pressure ulcer of other site, unspecified stage; E11.51 Type 2 diabetes mellitus with diabetic peripheral angiopathy without gangrene; I70.202 Unspecified atherosclerosis of native arteries of extremities, left leg; E11.40 Type 2 diabetes mellitus with diabetic neuropathy, unspecified; E11.59 Type 2 diabetes mellitus with other circulatory complications; I10 Essential (primary) hypertension | CPT/HCPCS: A9270; Q4133 ==

== ENCOUNTER 2022-02-12 01:13 | Day surgery (SDC) | payer OTHER | END 2022-02-12 23:11 | disposition home or self-care (01) | LOC: WOUND 01:13 | DX: E11.621 Type 2 diabetes mellitus with foot ulcer (principal); L97.415 Non-pressure chronic ulcer of right heel and midfoot with muscle involvement without evidence of necrosis; E11.40 Type 2 diabetes mellitus with diabetic neuropathy, unspecified; E11.51 Type 2 diabetes mellitus with diabetic peripheral angiopathy without gangrene; I70.202 Unspecified atherosclerosis of native arteries of extremities, left leg; E11.59 Type 2 diabetes mellitus with other circulatory complications; I10 Essential (primary) hypertension | CPT/HCPCS: Q4133 ==

== ENCOUNTER 2022-02-21 03:04 | Day surgery (SDC) | payer OTHER | END 2022-02-21 22:58 | disposition home or self-care (01) | LOC: WOUND 03:04 | DX: E11.621 Type 2 diabetes mellitus with foot ulcer (principal); L97.415 Non-pressure chronic ulcer of right heel and midfoot with muscle involvement without evidence of necrosis; E11.59 Type 2 diabetes mellitus with other circulatory complications; E11.51 Type 2 diabetes mellitus with diabetic peripheral angiopathy without gangrene; I70.202 Unspecified atherosclerosis of native arteries of extremities, left leg | CPT/HCPCS: Q4133 ==

== ENCOUNTER 2022-02-28 01:42 | Day surgery (SDC) | payer OTHER | END 2022-02-28 23:05 | disposition home or self-care (01) | LOC: WOUND 01:42 | DX: E11.621 Type 2 diabetes mellitus with foot ulcer (principal); L97.415 Non-pressure chronic ulcer of right heel and midfoot with muscle involvement without evidence of necrosis; L89.893 Pressure ulcer of other site, stage 3; E11.51 Type 2 diabetes mellitus with diabetic peripheral angiopathy without gangrene; I70.202 Unspecified atherosclerosis of native arteries of extremities, left leg; E11.59 Type 2 diabetes mellitus with other circulatory complications; E11.40 Type 2 diabetes mellitus with diabetic neuropathy, unspecified | CPT/HCPCS: G0463 ==

== ENCOUNTER 2022-03-17 01:27 | Day surgery (SDC) | payer OTHER | END 2022-03-17 22:46 | disposition home or self-care (01) | LOC: WOUND 01:27 | DX: E11.621 Type 2 diabetes mellitus with foot ulcer (principal); L97.415 Non-pressure chronic ulcer of right heel and midfoot with muscle involvement without evidence of necrosis; E11.59 Type 2 diabetes mellitus with other circulatory complications; E11.40 Type 2 diabetes mellitus with diabetic neuropathy, unspecified; E11.51 Type 2 diabetes mellitus with diabetic peripheral angiopathy without gangrene; I70.202 Unspecified atherosclerosis of native arteries of extremities, left leg; I10 Essential (primary) hypertension | CPT/HCPCS: G0463 ==

== ENCOUNTER 2022-03-31 01:32 | Day surgery (SDC) | payer OTHER | END 2022-03-31 22:52 | disposition home or self-care (01) | LOC: WOUND 01:32 | DX: E11.621 Type 2 diabetes mellitus with foot ulcer (principal); L89.893 Pressure ulcer of other site, stage 3; L97.412 Non-pressure chronic ulcer of right heel and midfoot with fat layer exposed; E11.40 Type 2 diabetes mellitus with diabetic neuropathy, unspecified; E11.51 Type 2 diabetes mellitus with diabetic peripheral angiopathy without gangrene; I70.202 Unspecified atherosclerosis of native arteries of extremities, left leg; I10 Essential (primary) hypertension; Z89.421 Acquired absence of other right toe(s) | CPT/HCPCS: G0463 ==

== ENCOUNTER 2022-04-14 01:17 | Day surgery (SDC) | payer OTHER | END 2022-04-14 22:42 | disposition home or self-care (01) | LOC: WOUND 01:17 | DX: E11.621 Type 2 diabetes mellitus with foot ulcer (principal); L97.412 Non-pressure chronic ulcer of right heel and midfoot with fat layer exposed; E11.59 Type 2 diabetes mellitus with other circulatory complications; E11.40 Type 2 diabetes mellitus with diabetic neuropathy, unspecified; E11.51 Type 2 diabetes mellitus with diabetic peripheral angiopathy without gangrene; I70.202 Unspecified atherosclerosis of native arteries of extremities, left leg; I10 Essential (primary) hypertension | CPT/HCPCS: G0463 ==

== ENCOUNTER 2022-04-29 11:23 | Day surgery (SDC) | payer MEDICARE, OTHER ==
[~2022-04-29] VITALS: Ht 193 cm; Wt 276.0 kg
--- NOTE | 2022-04-29 15:21 | NUR ---
04/29/22 1521 POPPY WEIR 200ML BLOOD LOSS PER DR. GR
== END 2022-04-29 15:53 | disposition home or self-care (01) ==
LOC: ORSCSDS 11:23
PROVIDERS: Podiatrist Foot & Ankle Surgery
PROC: 0LBV0ZZ Excision of Right Foot Tendon, Open Approach (ICD-10-PCS; principal; 2022-04-29 13:00)
DX: M67.471 Ganglion, right ankle and foot (principal); I10 Essential (primary) hypertension; I48.91 Unspecified atrial fibrillation; Z79.01 Long term (current) use of anticoagulants; I25.2 Old myocardial infarction; J44.9 Chronic obstructive pulmonary disease, unspecified; E78.5 Hyperlipidemia, unspecified; F17.210 Nicotine dependence, cigarettes, uncomplicated; E11.40 Type 2 diabetes mellitus with diabetic neuropathy, unspecified; Z79.899 Other long term (current) drug therapy; Z85.72 Personal history of non-Hodgkin lymphomas
CPT/HCPCS: 82947; 88108; 88304; A9270; J0690; J2704; J2795; J3010; J7120

== ENCOUNTER 2022-05-05 01:13 | Day surgery (SDC) | payer MEDICARE, OTHER | END 2022-05-05 23:20 | disposition home or self-care (01) | LOC: WOUND 01:13 | DX: E11.621 Type 2 diabetes mellitus with foot ulcer (principal); L97.412 Non-pressure chronic ulcer of right heel and midfoot with fat layer exposed; T81.89XA Other complications of procedures, not elsewhere classified, initial encounter; E11.59 Type 2 diabetes mellitus with other circulatory complications; E11.40 Type 2 diabetes mellitus with diabetic neuropathy, unspecified; E11.51 Type 2 diabetes mellitus with diabetic peripheral angiopathy without gangrene; I70.202 Unspecified atherosclerosis of native arteries of extremities, left leg; I10 Essential (primary) hypertension | CPT/HCPCS: G0463 ==

== ENCOUNTER 2022-05-12 00:34 | Day surgery (SDC) | payer MEDICARE, OTHER | END 2022-05-12 23:35 | disposition home or self-care (01) | LOC: WOUND 00:34 | DX: E11.621 Type 2 diabetes mellitus with foot ulcer (principal); L97.512 Non-pressure chronic ulcer of other part of right foot with fat layer exposed; E11.59 Type 2 diabetes mellitus with other circulatory complications; E11.40 Type 2 diabetes mellitus with diabetic neuropathy, unspecified; E11.51 Type 2 diabetes mellitus with diabetic peripheral angiopathy without gangrene; I70.202 Unspecified atherosclerosis of native arteries of extremities, left leg; I10 Essential (primary) hypertension | CPT/HCPCS: 99406; G0463 ==

== ENCOUNTER 2022-05-19 08:00 | Day surgery (SDC) | payer MEDICARE, OTHER | END 2022-05-19 23:59 | disposition home or self-care (01) | LOC: WOUND 08:00 | DX: E11.621 Type 2 diabetes mellitus with foot ulcer (principal); L97.412 Non-pressure chronic ulcer of right heel and midfoot with fat layer exposed; L97.512 Non-pressure chronic ulcer of other part of right foot with fat layer exposed; I70.202 Unspecified atherosclerosis of native arteries of extremities, left leg; E11.59 Type 2 diabetes mellitus with other circulatory complications; E11.40 Type 2 diabetes mellitus with diabetic neuropathy, unspecified; Z72.0 Tobacco use; I10 Essential (primary) hypertension ==

== ENCOUNTER 2022-05-26 02:40 | Day surgery (SDC) | payer MEDICARE, OTHER | END 2022-05-26 23:29 | disposition home or self-care (01) | LOC: WOUND 02:40 | DX: E11.621 Type 2 diabetes mellitus with foot ulcer (principal); E11.59 Type 2 diabetes mellitus with other circulatory complications; E08.40 Diabetes mellitus due to underlying condition with diabetic neuropathy, unspecified; I70.202 Unspecified atherosclerosis of native arteries of extremities, left leg; I10 Essential (primary) hypertension; L97.512 Non-pressure chronic ulcer of other part of right foot with fat layer exposed; T87.89 Other complications of amputation stump; Z72.0 Tobacco use | CPT/HCPCS: 99406; A9270; Q4133 ==

== ENCOUNTER 2022-06-04 08:00 | Day surgery (SDC) | payer MEDICARE, OTHER | END 2022-06-04 23:59 | disposition home or self-care (01) | LOC: WOUND 08:00 | DX: E11.621 Type 2 diabetes mellitus with foot ulcer (principal); L97.512 Non-pressure chronic ulcer of other part of right foot with fat layer exposed; E11.51 Type 2 diabetes mellitus with diabetic peripheral angiopathy without gangrene; I70.202 Unspecified atherosclerosis of native arteries of extremities, left leg; I10 Essential (primary) hypertension | CPT/HCPCS: 99406; A9270; Q4133 ==

== ENCOUNTER 2022-06-11 03:47 | Day surgery (SDC) | payer MEDICARE, OTHER | END 2022-06-11 23:45 | LOC: WOUND 03:47 | DX: E11.621 Type 2 diabetes mellitus with foot ulcer (principal); L97.415 Non-pressure chronic ulcer of right heel and midfoot with muscle involvement without evidence of necrosis; E11.59 Type 2 diabetes mellitus with other circulatory complications; E11.40 Type 2 diabetes mellitus with diabetic neuropathy, unspecified; E11.51 Type 2 diabetes mellitus with diabetic peripheral angiopathy without gangrene; I70.202 Unspecified atherosclerosis of native arteries of extremities, left leg; I10 Essential (primary) hypertension; F17.210 Nicotine dependence, cigarettes, uncomplicated | CPT/HCPCS: 99406; A9270; G0463; Q4133 ==

== ENCOUNTER → 2022-06-18 | Day surgery (SDC) | payer MEDICARE, OTHER | LOC: WOUND 02:34 | DX: E11.621 Type 2 diabetes mellitus with foot ulcer (principal); E11.59 Type 2 diabetes mellitus with other circulatory complications; L97.415 Non-pressure chronic ulcer of right heel and midfoot with muscle involvement without evidence of necrosis; S91.104A Unspecified open wound of right lesser toe(s) without damage to nail, initial encounter; I70.202 Unspecified atherosclerosis of native arteries of extremities, left leg; Z72.0 Tobacco use | CPT/HCPCS: Q4133 ==

== ENCOUNTER 2022-06-25 01:10 | Day surgery (SDC) | payer MEDICARE, OTHER | END 2022-06-25 23:32 | disposition home or self-care (01) | LOC: WOUND 01:10 | DX: L89.893 Pressure ulcer of other site, stage 3 (principal); E11.621 Type 2 diabetes mellitus with foot ulcer; L97.415 Non-pressure chronic ulcer of right heel and midfoot with muscle involvement without evidence of necrosis; T87.89 Other complications of amputation stump; E11.59 Type 2 diabetes mellitus with other circulatory complications; E11.51 Type 2 diabetes mellitus with diabetic peripheral angiopathy without gangrene; I70.202 Unspecified atherosclerosis of native arteries of extremities, left leg; I10 Essential (primary) hypertension; Z72.0 Tobacco use | CPT/HCPCS: Q4133 ==

== ENCOUNTER 2022-07-16 01:03 | Day surgery (SDC) | payer MEDICARE, OTHER | END 2022-07-16 23:39 | disposition home or self-care (01) | LOC: WOUND 01:03 | DX: E11.621 Type 2 diabetes mellitus with foot ulcer (principal); L97.415 Non-pressure chronic ulcer of right heel and midfoot with muscle involvement without evidence of necrosis; E11.59 Type 2 diabetes mellitus with other circulatory complications; E11.40 Type 2 diabetes mellitus with diabetic neuropathy, unspecified; E11.51 Type 2 diabetes mellitus with diabetic peripheral angiopathy without gangrene; I70.202 Unspecified atherosclerosis of native arteries of extremities, left leg; Z72.0 Tobacco use; I10 Essential (primary) hypertension | CPT/HCPCS: G0463 ==

== ENCOUNTER 2022-07-30 03:25 | Day surgery (SDC) | payer MEDICARE, OTHER | END 2022-07-30 22:51 | disposition home or self-care (01) | LOC: WOUND 03:25 | DX: E11.621 Type 2 diabetes mellitus with foot ulcer (principal); L97.512 Non-pressure chronic ulcer of other part of right foot with fat layer exposed; E11.51 Type 2 diabetes mellitus with diabetic peripheral angiopathy without gangrene; I70.202 Unspecified atherosclerosis of native arteries of extremities, left leg; E11.40 Type 2 diabetes mellitus with diabetic neuropathy, unspecified; Z72.0 Tobacco use; L89.899 Pressure ulcer of other site, unspecified stage | CPT/HCPCS: G0463 ==

== ENCOUNTER 2022-09-15 09:21 | Day surgery (SDC) | payer OTHER, MEDICARE | END 2022-09-15 23:16 | disposition home or self-care (01) | LOC: WOUND 09:21 | DX: E11.621 Type 2 diabetes mellitus with foot ulcer (principal); E11.59 Type 2 diabetes mellitus with other circulatory complications; E11.51 Type 2 diabetes mellitus with diabetic peripheral angiopathy without gangrene; L97.415 Non-pressure chronic ulcer of right heel and midfoot with muscle involvement without evidence of necrosis; L89.893 Pressure ulcer of other site, stage 3; I70.202 Unspecified atherosclerosis of native arteries of extremities, left leg; L03.116 Cellulitis of left lower limb; I10 Essential (primary) hypertension; Z89.431 Acquired absence of right foot; Z72.0 Tobacco use | CPT/HCPCS: G0463 ==

== ENCOUNTER 2022-09-29 00:20 | Day surgery (SDC) | payer OTHER, MEDICARE | END 2022-09-29 22:45 | disposition home or self-care (01) | LOC: WOUND 00:20 | DX: E11.621 Type 2 diabetes mellitus with foot ulcer (principal); L97.415 Non-pressure chronic ulcer of right heel and midfoot with muscle involvement without evidence of necrosis; E11.40 Type 2 diabetes mellitus with diabetic neuropathy, unspecified; E11.51 Type 2 diabetes mellitus with diabetic peripheral angiopathy without gangrene; I70.202 Unspecified atherosclerosis of native arteries of extremities, left leg; I10 Essential (primary) hypertension; Z72.0 Tobacco use; Z89.431 Acquired absence of right foot | CPT/HCPCS: G0463 ==

== ENCOUNTER 2022-10-13 01:42 | Day surgery (SDC) | payer OTHER, MEDICARE | END 2022-10-13 23:07 | disposition home or self-care (01) | LOC: WOUND 01:42 | DX: L89.893 Pressure ulcer of other site, stage 3 (principal); E11.59 Type 2 diabetes mellitus with other circulatory complications; E11.51 Type 2 diabetes mellitus with diabetic peripheral angiopathy without gangrene; I70.202 Unspecified atherosclerosis of native arteries of extremities, left leg; Z72.0 Tobacco use | CPT/HCPCS: G0463 ==

== ENCOUNTER 2022-10-31 02:04 | Day surgery (SDC) | payer OTHER, MEDICARE | END 2022-10-31 22:51 | disposition home or self-care (01) | LOC: WOUND 02:04 | DX: E11.621 Type 2 diabetes mellitus with foot ulcer (principal); L97.415 Non-pressure chronic ulcer of right heel and midfoot with muscle involvement without evidence of necrosis; E11.59 Type 2 diabetes mellitus with other circulatory complications; E11.51 Type 2 diabetes mellitus with diabetic peripheral angiopathy without gangrene; I70.202 Unspecified atherosclerosis of native arteries of extremities, left leg; Z72.0 Tobacco use | CPT/HCPCS: 87070; 87077; 87147; 87186; 87205; 99406; G0463 ==

== ENCOUNTER 2022-11-07 00:37 | Day surgery (SDC) | payer OTHER | END 2022-11-07 23:05 | disposition home or self-care (01) | LOC: WOUND 00:37 | DX: E11.621 Type 2 diabetes mellitus with foot ulcer (principal); L97.415 Non-pressure chronic ulcer of right heel and midfoot with muscle involvement without evidence of necrosis; L89.893 Pressure ulcer of other site, stage 3; E11.59 Type 2 diabetes mellitus with other circulatory complications; E11.40 Type 2 diabetes mellitus with diabetic neuropathy, unspecified; I70.202 Unspecified atherosclerosis of native arteries of extremities, left leg; I10 Essential (primary) hypertension; B95.62 Methicillin resistant Staphylococcus aureus infection as the cause of diseases classified elsewhere; Z89.431 Acquired absence of right foot; Z72.0 Tobacco use ==

== ENCOUNTER 2022-11-13 08:40 | Day surgery (SDC) | payer OTHER ==
[~2022-11-13] VITALS: Ht 193 cm; Wt 126.6 kg
--- NOTE | 2022-11-13 12:24 | NUR ---
11/13/22 1224 Aiden Simeon PT IN ISOLATION FOR ACTIVE MRSA.
== END 2022-11-13 10:45 | disposition home or self-care (01) ==
LOC: ORSCSDS 08:40
PROVIDERS: Ophthalmology
PROC: 08DJ3ZZ Extraction of Right Lens, Percutaneous Approach (ICD-10-PCS; principal; 2022-11-13 10:00)
DX: H25.11 Age-related nuclear cataract, right eye (principal); F41.9 Anxiety disorder, unspecified; F32.A Depression, unspecified; E78.5 Hyperlipidemia, unspecified; I10 Essential (primary) hypertension; I25.2 Old myocardial infarction; I48.91 Unspecified atrial fibrillation; I25.10 Atherosclerotic heart disease of native coronary artery without angina pectoris; E11.9 Type 2 diabetes mellitus without complications; Z79.899 Other long term (current) drug therapy
CPT/HCPCS: 82947; J2001; J2250; J3010; J3301; J7040; V2632

== ENCOUNTER 2022-11-14 01:12 | Day surgery (SDC) | payer OTHER, MEDICARE | END 2022-11-14 23:06 | disposition home or self-care (01) | LOC: WOUND 01:12 | DX: E11.621 Type 2 diabetes mellitus with foot ulcer (principal); I87.2 Venous insufficiency (chronic) (peripheral); Z72.0 Tobacco use; I70.202 Unspecified atherosclerosis of native arteries of extremities, left leg; E11.59 Type 2 diabetes mellitus with other circulatory complications; I10 Essential (primary) hypertension | CPT/HCPCS: 99406; G0463 ==

== ENCOUNTER 2022-11-21 01:41 | Day surgery (SDC) | payer OTHER, MEDICARE | END 2022-11-22 23:30 | disposition home or self-care (01) | LOC: WOUND 01:41 | DX: E11.621 Type 2 diabetes mellitus with foot ulcer (principal); L97.512 Non-pressure chronic ulcer of other part of right foot with fat layer exposed; Z72.0 Tobacco use; I70.202 Unspecified atherosclerosis of native arteries of extremities, left leg | CPT/HCPCS: A9270; G0463 ==

== ENCOUNTER 2022-11-26 19:38 | Inpatient (IN) | payer OTHER, MEDICARE ==
[~2022-11-26] VITALS: Ht 193 cm; Wt 122.5 kg
[2022-11-26 20:31] LABS: BASOPHILS ABSOLUTE AUTO 0.13 K/mm3 (0.00-0.23); BASOPHILS PERCENT AUTO 1 % (0-2); EOSINOPHILS PERCENT AUTO 0 % (0-6); Hematocrit 45.3 % (37.0-53.0); Hemoglobin 14.9 g/dL (13.5-17.5); IMMATURE GRAN ABSOLUTE AUTO 0.33 K/mm3 (0.00-0.10); IMMATURE GRAN PERCENT AUTO 1 % (0-1); LYMPHOCYTES ABSOLUTE AUTO 3.06 K/mm3 (0.84-5.20); LYMPHOCYTES PERCENT AUTO 13 % (21-46); MONOCYTES ABSOLUTE AUTO 1.04 K/mm3 (0.16-1.47); MONOCYTES PERCENT AUTO 4 % (4-13); Mean Corpuscular HGB 28.4 pg (26.0-34.0); Mean Corpuscular HGB Conc 32.9 g/dL (31.5-36.5); Mean Corpuscular Volume 86 fL (80-100); Mean Platelet Volume 9.2 fL (9.1-12.4); NEUTROPHILS ABSOLUTE AUTO 19.27 K/mm3 (1.96-9.15); NEUTROPHILS PERCENT AUTO 81 % (41-73); NRBC ABSOLUTE 0.04 K/mm3 (0.00-0.02); NRBC Auto 0.2 /100 WBC (0.0-0.2); Platelet Count 286 K/mm3 (150-400); RDW Coefficient Variation 13.2 % (11.7-14.2); RDW Standard Deviation 40.6 fL (35.1-46.3); Red Blood Cell Count 5.25 M/mm3 (4.30-5.90); White Blood Cell Count 23.83 K/mm3 (4.00-11.30)
[2022-11-26 20:45] LABS: Albumin, Blood 2.6 g/dL (3.4-5.0); Albumin/Globulin Ratio 0.5 (0.8-1.8); Bilirubin, Total 1.5 mg/dL (0.1-1.0); Bun/Creatinine Ratio 13.1 (12.0-20.0); Calcium, Blood 8.8 mg/dL (8.5-10.1); Creatinine, Blood 0.99 mg/dL (0.60-1.20); Globulin, Blood 5.1 g/dL (2.2-4.0); Total Protein, Blood 7.7 g/dL (6.4-8.2)
--- NOTE | 2022-11-27 00:56 | NUR ---
UPDATE RECEIVED REPORT FROM LIZETT URBINA RN. ALL QUESTIONS ANSWERED AWAITING PT ARRIVAL TO PCU 13
[2022-11-27 02:41] LABS: Influenza A, PCR NEGATIVE (NEGATIVE); Influenza B, PCR NEGATIVE (NEGATIVE); Resp Syncytial Virus, PCR NEGATIVE (NEGATIVE); SARS-Cov-2 (COVID-19) PCR, MMC NEGATIVE (NEGATIVE)
--- NOTE | 2022-11-27 04:21 | NUR ---
11/27/22 0421 Lucy Proctor PT ON SCHEDULED ANTIBIOTICS
--- NOTE | 2022-11-27 07:14 | NUR ---
TRANSFER OF CARE/RECOVERY NOTE PT ARRIVED IN PCU 13 AT 0103 THIS AM. PT IS A/Ox4 AND COOPERATIVE WITH CARE PROVIDED BY STAFF. ABLE TO MAKE NEEDS KNOWN. ON RA AND IN AFIB 90-100'S. BP SOFT, BUT STABLE. NS BOLUS RUNNING ORDERED FROM ER IN RIGHT AC IV. RIGHT DIABETIC PRESSURE X2 NOTED ON RIGHT FOOT. SEE PHOTOS IN CHART. VSS UPON ARRIVAL FROM ED. SEE ADMIT ASSESSMENT FOR MORE DETAILS. RECEIVED PT FROM PACU AT ~0650 THIS AM. UNDERWENT BELOW THE KNEE AMUTATION OF THE RIGHT LOWER EXTREMITY. CONTINUES TO BE A/Ox4 AND CONTINUES TO BE COOPERATIVE WITH CARE PROVIDED BY MEMBERS OF STAFF. MAINTAINS SPO2 >90% ON 3L VIA NC WITH NO SOB OR DYSPNEA NOTED UPON ARRIVAL. CARDIAC VIEIRA PT REMAINS IN AFIB RHYTHM RANGING 110-120'S WITH NO CP OR PRESSIRE REPORTED. SBP IS NOW RANGING IN THE 150'S. PAIN IS BEING MANAGED PER EMAR. SURGICAL DRESSING INTACT WITH SHAUN DRAIN PATENT AND DRAINING BLOODY DRAINAGE FROM SURGICAL SITE. WILL PASS ON INFORMATION TO DAYSHIFT RN.
[2022-11-27 08:14] LABS: BASOPHILS ABSOLUTE AUTO 0.05 K/mm3 (0.00-0.23); BASOPHILS PERCENT AUTO 0 % (0-2); EOSINOPHILS PERCENT AUTO 0 % (0-6); Hematocrit 38.8 % (37.0-53.0); Hemoglobin 12.4 g/dL (13.5-17.5); IMMATURE GRAN ABSOLUTE AUTO 0.12 K/mm3 (0.00-0.10); IMMATURE GRAN PERCENT AUTO 1 % (0-1); LYMPHOCYTES ABSOLUTE AUTO 1.94 K/mm3 (0.84-5.20); LYMPHOCYTES PERCENT AUTO 14 % (21-46); MONOCYTES ABSOLUTE AUTO 0.27 K/mm3 (0.16-1.47); MONOCYTES PERCENT AUTO 2 % (4-13); Mean Corpuscular HGB 27.9 pg (26.0-34.0); Mean Corpuscular Volume 87 fL (80-100); Mean Platelet Volume 9.4 fL (9.1-12.4); NEUTROPHILS ABSOLUTE AUTO 11.69 K/mm3 (1.96-9.15); NEUTROPHILS PERCENT AUTO 83 % (41-73); NRBC ABSOLUTE 0.04 K/mm3 (0.00-0.02); NRBC Auto 0.3 /100 WBC (0.0-0.2); Platelet Count 255 K/mm3 (150-400); RDW Coefficient Variation 13.5 % (11.7-14.2); RDW Standard Deviation 42.8 fL (35.1-46.3); Red Blood Cell Count 4.45 M/mm3 (4.30-5.90); White Blood Cell Count 14.07 K/mm3 (4.00-11.30)
[2022-11-27 08:30] LABS: Bun/Creatinine Ratio 15.3 (12.0-20.0); Calcium, Blood 7.6 mg/dL (8.5-10.1); Creatinine, Blood 0.85 mg/dL (0.60-1.20); Potassium, Blood 4.5 mmol/L (3.5-5.5)
--- NOTE | 2022-11-27 18:13 | NUR ---
SHIFT SUMMARY PT WAS ASLEEP FOR A MAJORITY OF THE DAY. AT INITIAL ASSESSMENT PT STATED 9/10 PAIN TO THE RIGHT KNEE/LEG WHICH WAS TREATED WITH MEDICATION PER EMAR. PT WAS PROFUSELY DIAPHORETIC WITH STATED PAIN >7/10 WHICH RESOLVED PERIODICALLY WITH STATED PAIN OF <7/10. PT DECLINED BREAKFAST DUE TO LEVEL OF PAIN AND DISCOMFORT. THEY WERE ABLE TO DRINK WATER AND EAT OTHER MEALS WITHOUT ANY NAUSEA OR VOMITING. ALL VITAL SIGNS HAVE BEEN STABLE AND WNL. IN THE EVENING PT STATED THAT PAIN HAD BECOME TOLERABLE AND HAD BEEN MANAGED WELL.
[2022-11-28 02:13] LABS: Vancomycin, Trough 12.5 ug/mL (5.0-10.0)
[2022-11-28 02:18] LABS: Albumin, Blood 2.1 g/dL (3.4-5.0); Albumin/Globulin Ratio 0.5 (0.8-1.8); Bilirubin, Total 0.4 mg/dL (0.1-1.0); Bun/Creatinine Ratio 26.1 (12.0-20.0); Calcium, Blood 7.8 mg/dL (8.5-10.1); Creatinine, Blood 0.69 mg/dL (0.60-1.20); Globulin, Blood 4.6 g/dL (2.2-4.0); Potassium, Blood 4.2 mmol/L (3.5-5.5); Total Protein, Blood 6.7 g/dL (6.4-8.2)
[2022-11-28 02:19] LABS: Hematocrit 33.4 % (37.0-53.0); Hemoglobin 11.4 g/dL (13.5-17.5); Mean Corpuscular HGB 30.5 pg (26.0-34.0); Mean Corpuscular HGB Conc 34.1 g/dL (31.5-36.5); Mean Corpuscular Volume 89 fL (80-100); Mean Platelet Volume 9.6 fL (9.1-12.4); NRBC ABSOLUTE 0.04 K/mm3 (0.00-0.02); NRBC Auto 0.3 /100 WBC (0.0-0.2); Platelet Count 264 K/mm3 (150-400); RDW Coefficient Variation 13.8 % (11.7-14.2); Red Blood Cell Count 3.74 M/mm3 (4.30-5.90); White Blood Cell Count 12.72 K/mm3 (4.00-11.30)
--- NOTE | 2022-11-28 05:16 | NUR ---
SHIFT SUMMARY PT IS A/Ox4 AND IS COOPERATIVE WITH CARE PROVIDED BY MEMBERS OF STAFF. PT CAN BE SLOW TO RESPOND AT TIMES, BUT IS ABLE TO ANSWER QUESTIONS APPROPRIATELY. CARDIAC VIEIRA, PT REMAINS IN AFIB RHYTHM WITH A HR RANGING IN 80-100'S. PT DID HAVE AN EPISODE WERE HE BETINA'D DOWN TO HIGH 40'S, BUT HE DID NOT SUSTAIN. MAINTAINS SPO2 >90% ON RA WITH NO SOB OR DYSPNEA REPORTED. 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 SURGICAL DRESSING CONTINUES TO BE UNSATURATED AND DRAIN CONTINUES TO DRAIN BLOODY DRAINAGE. WILL REPORT TO ANÍBAL RN. RONDA EDOUARD T/O THE SHIFT
--- NOTE | 2022-11-28 18:10 | NUR ---
ASSUMED CARE OF PT AT 0700 THIS AM. PT NOTED TO HAVE A BRIEF EPISODE OF HR DROPPING IN TO 30s, AFIB ON TELEMETRY. PT APPEARED TO BE SLEEPING DURING THIS EPISODE AND DENIED ANY SYMPTOMS ON WAKING. HR RETURNED TO BASELINE, SEE DOCUMENTED VS. NO OTHER CHANGES TO PT'S CONDITION NOTED T/O SHIFT, NO OTHER ACUTE EVENTS. PT'S PAIN APPEARS WELL CONTROLED WITH ORAL/IV MEDICATIONS. PT WORKED WITH PO/OT TODAY AND TOLERATED WELL. PT ABLE TO USE CALL LIGHT FOR NEEDS, CALL LIGHT IN REACH, WILL CONITNUE TO MONITOR AND GIVE REPORT TO NOC SHIFT RN.
[2022-11-29 04:32] LABS: Hematocrit 32.8 % (37.0-53.0); Hemoglobin 10.6 g/dL (13.5-17.5); Mean Corpuscular HGB 28.6 pg (26.0-34.0); Mean Corpuscular HGB Conc 32.3 g/dL (31.5-36.5); Mean Corpuscular Volume 89 fL (80-100); Mean Platelet Volume 9.6 fL (9.1-12.4); Platelet Count 251 K/mm3 (150-400); RDW Standard Deviation 45.1 fL (35.1-46.3); White Blood Cell Count 10.54 K/mm3 (4.00-11.30)
--- NOTE | 2022-11-29 04:51 | NUR ---
SHIFT SUMMARY PT IS A/Ox4 AND IS COOPERATIVE WITH CARE PROVIDED BY MEMBERS OF STAFF. HAS A FLAT AFFECT AT TIMES, BUT IS ABLE TO MAKE NEEDS KNOWN/ANSWERS QUESTIONS APPROPRIATELY. PT REMAINS IN AFIB RHYTHM WITH A HR RANGING IN 80-100'S. CONTINUES TO HAVE EPISODES WHERE HR WOULD DROP TO THE 40'S, BUT WOULD QUICKLY RECOVER TO HIS USUAL RATE.MAINTAINS SPO2 >90% ON RA WITH NO SOB OR DYSPNEA REPORTED. 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 SURGICAL DRESSING REMAINS INTACT WITH NO SATURATION NOTED. DRAIN WAS REMOVED ON DAYSHIFT 11/28. DR. CHU WILL CHANGE DRESSING TODAY ACCORDING TO HIS NOTE. WILL PASS INFORMATION TO DAYSARFT RN. RONDA EDOUARD T/O THE SHIFT
[2022-11-29 04:58] LABS: Albumin/Globulin Ratio 0.5 (0.8-1.8); Bilirubin, Total 0.5 mg/dL (0.1-1.0); Bun/Creatinine Ratio 29.1 (12.0-20.0); Calcium, Blood 7.5 mg/dL (8.5-10.1); Creatinine, Blood 0.72 mg/dL (0.60-1.20); Globulin, Blood 4.2 g/dL (2.2-4.0); Magnesium, Blood 1.8 mg/dL (1.6-2.4); Potassium, Blood 3.8 mmol/L (3.5-5.5); Total Protein, Blood 6.2 g/dL (6.4-8.2)
[2022-11-29 11:24] LABS: Hematocrit 36.8 % (37.0-53.0); Mean Corpuscular HGB 28.7 pg (26.0-34.0); Mean Corpuscular HGB Conc 32.6 g/dL (31.5-36.5); Mean Corpuscular Volume 88 fL (80-100); Mean Platelet Volume 9.7 fL (9.1-12.4); Platelet Count 291 K/mm3 (150-400); RDW Coefficient Variation 14.1 % (11.7-14.2); RDW Standard Deviation 45.1 fL (35.1-46.3); Red Blood Cell Count 4.18 M/mm3 (4.30-5.90); White Blood Cell Count 10.74 K/mm3 (4.00-11.30)
--- NOTE | 2022-11-29 16:22 | NUR ---
TRANSFER PT ARRIVED FROM PCU ON HIS OWN BED AT 1545, PT MEDICATED FOR PAIN PER EMAR WHICH HE REPORTS IS TOLERABLE. DRESSING TO R FOOT IS CDI, CHANGED THIS MORNING BY DR. CHU PER REPORT. PT CALLING APPROPRIATLY AND USING CALL LIGHT, DENIES FURTHER NEEDS AT THIS TIME AND ASKED THIS RN TO TURN OFF LIGHT SO HE CAN SLEEP.
[2022-11-30 05:28] LABS: Albumin, Blood 2.2 g/dL (3.4-5.0); Albumin/Globulin Ratio 0.5 (0.8-1.8); Bilirubin, Total 0.7 mg/dL (0.1-1.0); Bun/Creatinine Ratio 25.1 (12.0-20.0); Calcium, Blood 8.4 mg/dL (8.5-10.1); Creatinine, Blood 0.68 mg/dL (0.60-1.20); Globulin, Blood 4.5 g/dL (2.2-4.0); Potassium, Blood 4.9 mmol/L (3.5-5.5); Total Protein, Blood 6.7 g/dL (6.4-8.2)
--- NOTE | 2022-11-30 06:13 | NUR ---
patient slept well over night, percocet given for pain ATC. Dressing on rt lower leg is clean, dry, and intact. voiding well, bowel sounds active.
--- NOTE | 2022-11-30 15:48 | NUR ---
SHIFT SUMMARY NO ACUTE CHANGES THIS SHIFT. POD 3 R BKA, STUMP SOCK & DRESSING TO RIGHT FOOT IS C/D/I, TO BE CHANGED TOMORROW BY DR BECKWITH, PER HIS NOTE. PAIN MANAGED PER EMAR. EATING, DRINKING, AND VOIDING WELL. USES CALL LIGHT APPROPRIATELY, WILL REPORT TO ONCOMING RN AT 1900.
--- NOTE | 2022-12-01 05:21 | NUR ---
SHIFT SUMMARY POD#4 RIGHT BKA. AAOX4. DISCOMFORT CONTROLLED WITH X1 FLEXERIL LAST NIGHT. NO NAUSEA/EMESIS. RESTED WELL T/O MOST OF NIGHT. DRESSING TO RIGHT STUMP C/D/I. IVF TKO. OLD IV SITE TO RIGHT AC WITH REDNESS, PT REPORTING SKIN SENSITIVITY TO ADHESIVES USED, REPORTING RELIEF WITH LOTION. MOVES WELL IN BED, GOOD URINE OUTPUT + PO INTAKE. TELEMETRY A-FIB IN 80s. NO ACUTE CHANGES OVER NIGHT. PT CURRENTLY RESTING IN BED WITH CALL LIGHT IN REACH.
--- NOTE | 2022-12-01 12:29 | NUR ---
DR. CHU CHANGED DSG ON RLE THIS AM, INCISION APPEARED C/D/I, NO DRAINAGE OR REDNESS NOTED.
--- NOTE | 2022-12-01 18:33 | NUR ---
SUMMARY C/O MINIMAL MARISCAL TODAY, MEDICATED ONCE FOR PAIN, OOB TO RECLINER MOST OF THE DAY, 2 PERSON MIN ASSIST W/ WALKER AND GAIT BELT, MICKEY WELL, USES BSC AND URINAL, RLE DSG C/D/I, CHANGED BY DR. CHU TODAY, SLEPT MOST OF THE AFTERNOON, NO ACUTE CHANGES THIS SHIFT.
--- NOTE | 2022-12-02 04:09 | NUR ---
SHIFT SUMMARY NO ACUTE CHANGES. PT RESTED WELL T/O SHIFT. 1 PERCOCET FOR PAIN. STUMP SOCK TO R LEG REMAINS CDI. PT USING URINAL TO VOID. IV TKO. AFIB PER TELE. USES CALL LIGHT APPROPRIATELY.
[2022-12-02 04:14] LABS: Hematocrit 40.8 % (37.0-53.0); Hemoglobin 13.3 g/dL (13.5-17.5); Mean Corpuscular HGB 28.1 pg (26.0-34.0); Mean Corpuscular HGB Conc 32.6 g/dL (31.5-36.5); Mean Corpuscular Volume 86 fL (80-100); Mean Platelet Volume 9.5 fL (9.1-12.4); Platelet Count 384 K/mm3 (150-400); RDW Coefficient Variation 13.4 % (11.7-14.2); RDW Standard Deviation 41.4 fL (35.1-46.3); Red Blood Cell Count 4.74 M/mm3 (4.30-5.90); White Blood Cell Count 11.34 K/mm3 (4.00-11.30)
[2022-12-02 04:38] LABS: Albumin, Blood 2.4 g/dL (3.4-5.0); Albumin/Globulin Ratio 0.5 (0.8-1.8); Bilirubin, Total 0.5 mg/dL (0.1-1.0); Bun/Creatinine Ratio 23.4 (12.0-20.0); Calcium, Blood 8.9 mg/dL (8.5-10.1); Creatinine, Blood 0.73 mg/dL (0.60-1.20); Globulin, Blood 4.8 g/dL (2.2-4.0); Total Protein, Blood 7.2 g/dL (6.4-8.2)
--- NOTE | 2022-12-02 15:48 | NUR ---
PT DC'D TO [facility], REPORT GIVEN TO JASON ALLEN, PT DC'D VIA W/C TRANSPORT.
== END 2022-12-02 15:39 | DRG 474 ==
LOC: ER 19:38 → PCU 11-27 00:32 → SURS 11-29 15:38
PROVIDERS: Internal Medicine; Student in an Organized Health Care Education/Training Program; ADMIT Internal Medicine
PROC: 3E03329 Introduction of Other Anti-infective into Peripheral Vein, Percutaneous Approach (ICD-10-PCS; 2022-11-27)
PROC: 0Y6H0Z3 Detachment at Right Lower Leg, Low, Open Approach (ICD-10-PCS; principal; 2022-12-01)
DX: T87.43 Infection of amputation stump, right lower extremity (principal); A41.51 Sepsis due to Escherichia coli [E. coli]; A48.0 Gas gangrene; R65.20 Severe sepsis without septic shock; C85.90 Non-Hodgkin lymphoma, unspecified, unspecified site; L02.415 Cutaneous abscess of right lower limb; E87.1 Hypo-osmolality and hyponatremia; I48.20 Chronic atrial fibrillation, unspecified; E87.20 Acidosis, unspecified; L03.115 Cellulitis of right lower limb; E11.52 Type 2 diabetes mellitus with diabetic peripheral angiopathy with gangrene; Z20.822 Contact with and (suspected) exposure to COVID-19; Z28.21 Immunization not carried out because of patient refusal; G89.29 Other chronic pain; M54.9 Dorsalgia, unspecified; G47.00 Insomnia, unspecified; I10 Essential (primary) hypertension; E78.5 Hyperlipidemia, unspecified; E11.628 Type 2 diabetes mellitus with other skin complications; F17.210 Nicotine dependence, cigarettes, uncomplicated; G25.81 Restless legs syndrome; Z86.14 Personal history of Methicillin resistant Staphylococcus aureus infection; Z98.890 Other specified postprocedural states; Z79.01 Long term (current) use of anticoagulants; Z79.899 Other long term (current) drug therapy
CPT/HCPCS: 0241U; 36415; 73552; 73590; 73700; 80048; 80053; 80202; 82947; 83605; 83735; 85025; 85027; 86141; 87040; 87077; 87186; 88307; 93306; 96365-59; 96375-59; 97110; 97116; 97162; 97166; 97530; 97535; 99285-25; A9270; J0692; J0696; J1100; J1170; J1885; J2270; J2370; J2405; J2543; J2704; J3010; J3370; J7030; J7040; J7050

== ENCOUNTER 2023-01-06 13:12 | Day surgery (SDC) | payer OTHER ==
[~2023-01-06] VITALS: Ht 193 cm; Wt 122.7 kg
--- NOTE | 2023-01-06 13:34 | NUR ---
01/06/23 1334 Clinton Sharp CALL LIGHT WITHIN REACH. TETRACAIN IN LEFT EYE AT 1330 PLEDGETT AT 1331
--- NOTE | 2023-01-06 16:24 | NUR ---
01/06/23 1624 Aiden Simeon MONITOR SHOWED HEART RATE SUSTAINING IN 90'S AND LOW 100'S WITH ONE BREIF DROP TO 40'S AND ONE BREIF DROP TO 50'S. PRE-OP HEART RATE WAS RECORDED IN 50'S. PULSE PALPATED MANUALLY AT 98. PT HAS HX A-FIB AND STATES HIS PCP IS AWARE.
== END 2023-01-06 15:20 | disposition home or self-care (01) ==
LOC: ORSCSDS 13:12
PROVIDERS: Ophthalmology
PROC: 08RK3JZ Replacement of Left Lens with Synthetic Substitute, Percutaneous Approach (ICD-10-PCS; principal; 2023-01-06 14:30)
DX: H25.12 Age-related nuclear cataract, left eye (principal); Z96.1 Presence of intraocular lens; F17.210 Nicotine dependence, cigarettes, uncomplicated; F41.9 Anxiety disorder, unspecified; F32.A Depression, unspecified; E11.9 Type 2 diabetes mellitus without complications; E78.5 Hyperlipidemia, unspecified; I10 Essential (primary) hypertension; Z79.01 Long term (current) use of anticoagulants; Z79.899 Other long term (current) drug therapy
CPT/HCPCS: 82947; J2001; J2250; J3010; J3301; J7040; V2632

== ENCOUNTER → 2023-10-14 | Outpatient (CLI) | payer MEDICARE, OTHER | LOC: LAB 15:40 → LAB SHORT 15:40 | PROVIDERS: Nurse Practitioner | DX: C83.38 Diffuse large B-cell lymphoma, lymph nodes of multiple sites (principal); D45 Polycythemia vera | CPT/HCPCS: 81270 ==

== ENCOUNTER 2025-11-03 12:40 | Emergency (ER) | payer MEDICARE ==
[~2025-11-03] VITALS: Ht 190.5 cm; Wt 122.5 kg
[2025-11-03 16:48] LABS: BASOPHILS ABSOLUTE AUTO 0.06 K/mm3 (0.00-0.23); BASOPHILS PERCENT AUTO 1 % (0-2); EOSINOPHILS ABSOLUTE AUTO 0.13 K/mm3 (0.00-0.68); EOSINOPHILS PERCENT AUTO 2 % (0-6); Hematocrit 45.2 % (37.0-53.0); Hemoglobin 14.4 g/dL (13.5-17.5); IMMATURE GRAN ABSOLUTE AUTO 0.02 K/mm3 (0.00-0.10); IMMATURE GRAN PERCENT AUTO 0 % (0-1); LYMPHOCYTES ABSOLUTE AUTO 4.04 K/mm3 (0.84-5.20); LYMPHOCYTES PERCENT AUTO 51 % (21-46); MONOCYTES ABSOLUTE AUTO 0.54 K/mm3 (0.16-1.47); MONOCYTES PERCENT AUTO 7 % (4-13); Mean Corpuscular HGB Conc 31.9 g/dL (31.5-36.5); Mean Corpuscular Volume 89 fL (80-100); NEUTROPHILS ABSOLUTE AUTO 3.16 K/mm3 (1.96-9.15); NEUTROPHILS PERCENT AUTO 40 % (41-73); NRBC ABSOLUTE 0.00 K/mm3 (0.00-0.02); NRBC Auto 0.0 /100 WBC (0.0-0.2); Platelet Count 291 K/mm3 (150-400); RDW Coefficient Variation 13.6 % (11.7-14.2); RDW Standard Deviation 44.2 fL (35.1-46.3)
[2025-11-03 16:54] VITALS: BP 119/72
[2025-11-03 17:10] LABS: Alanine Aminotransfer (ALT/SGP 28.0 U/L (12-78); Albumin, Blood 1.5 g/dL (3.4-5.0); Albumin/Globulin Ratio 0.3 (0.8-1.8); Anion Gap 5.0 mmol/L (3-11); Aspartate Aminotrans (AST/SGOT 36.0 U/L (12-37); Bilirubin, Total 0.4 mg/dL (0.1-1.0); Blood Urea Nitrogen 7.0 mg/dL (8-24); CO2, Blood 30.0 mmol/L (21-32); Calcium, Blood 8.4 mg/dL (8.5-10.1); Chloride, Blood 103.0 mmol/L (98-108); Creatinine, Blood 0.72 mg/dL (0.60-1.20); Globulin, Blood 5.0 g/dL (2.2-4.0); Glucose, Blood 105.0 mg/dL (70-99); Potassium, Blood 4.3 mmol/L (3.5-5.5); Sodium, Blood 134.0 mmol/L (136-145); Total Protein, Blood 6.5 g/dL (6.4-8.2)
[2025-11-03] MEDS ORDERED: LOPE2C PO (19:52)
[2025-11-03 23:58] LABS: Campylobacter Sp Not Detected (NOT DETECT)
[2025-11-03 23:59] LABS: E. Coli O157 Not Detected (NOT DETECT); Enteroaggregative E. coli-EAEC Not Detected (NOT DETECT); Enteropathogenic E. coli-EPEC Not Detected (NOT DETECT); Enterotoxigenic E. coli-ETEC Not Detected (NOT DETECT); Salmonella Sp Not Detected (NOT DETECT); Shiga Toxin-prod E. coli-STEC Not Detected (NOT DETECT); Shigella/Enteroin E. coli-EIEC Not Detected (NOT DETECT); Vibrio Sp Not Detected (NOT DETECT)
== END 2025-11-03 20:10 | disposition home or self-care (01) ==
LOC: ER 12:40
PROVIDERS: Emergency Medicine; Physician Assistant
DX: R10.31 Right lower quadrant pain (principal); R19.7 Diarrhea, unspecified; R19.07 Generalized intra-abdominal and pelvic swelling, mass and lump; I48.91 Unspecified atrial fibrillation; I10 Essential (primary) hypertension; E78.5 Hyperlipidemia, unspecified; F17.210 Nicotine dependence, cigarettes, uncomplicated; Z79.899 Other long term (current) drug therapy
CPT/HCPCS: 80053; 85025; 87507; 99284-25